=== PATIENT | female | born 1930 | race Caucasian/White ===

== ENCOUNTER 2017-10-13 23:31 | Inpatient (IN) | payer MEDICARE, OTHER ==
[~2017-10-13] VITALS: Ht 172.7 cm; Wt 49.0 kg
[2017-10-14] MEDS ORDERED: METO50TA6 PO (00:44)
[2017-10-14] MEDS ORDERED: RIVA10TA PO (00:44)
[2017-10-14] MEDS ORDERED: DICL100G18 TP (00:44)
[2017-10-14] MEDS ORDERED: FLEC100T PO (00:44)
[2017-10-14] MEDS ORDERED: AMLO5TAB7 PO (00:44)
[2017-10-14] MEDS ORDERED: LEVO75TA5 PO (00:44)
[2017-10-14] MEDS ORDERED: SENN-79 PO (00:44)
[2017-10-14] MEDS ORDERED: BUPR-192 PO (00:44)
[2017-10-14] MEDS ORDERED: CHOL100013 PO (00:44)
[2017-10-14] MEDS ORDERED: ESTA2TAB PO (00:44)
--- NOTE | 2017-10-14 04:15 | NUR ---
Admission Note with Justification for Admission to [facility] Patient admitted to [facility] for protective oversight for emergency stabilization of acute psychiatric crisis. Pt admitted from: Hospital ER Mode of arrival: Secure Transport Accompanied By: [facility] Staff Precipitating behaviors that initiated intake and admission: SI, patient stated she would slit her wrist if she couldn't live with her partner Description of failure of out patient attempts at stabilization in previous setting list behavior and medication trials: ER Behaviors and assessment findings upon admission: Very accommodating, pleasant, cooperative Plan: Admit for protective oversight for adjustment and stabilization of medications, behaviors and mood. Intense treatment regimen including groups, medication adjustments, therapy, consistent regimen for ADL's, self care, and sleep hygiene. Daily monitoring by Inpatient staff, Psychiatry, and Medical Physician.
[2017-10-14] MEDS ORDERED: METHYL SALICYLATE/MENTHOL TOPICAL OINTMENT 29GM TUBE. TP PRN (04:30)
[2017-10-14] MEDS ORDERED: MAG HYDROX/AL HYDROX/SIMETH 30 ML ORAL.SUSP PO PRN (04:30)
[2017-10-14 05:12] LABS: BACTERIA,URINE 0 /HPF (0-FEW); BILIRUBIN,URINE NEG (NEG); CLARITY,URINE CLEAR; COLOR,URINE YELLOW; GLUCOSE,URINE NEG (NEG); NITRITE,URINE NEG (NEG); RBC,URINE 0 /HPF (0-2); SQUAMOUS EPITHELIAL CELL,UR OCC /LPF; UROBILINOGEN,URINE 0.2 mg/dL (0.2 mg/dL); WBC,URINE OCC /HPF (0-4)
[2017-10-14] MEDS ORDERED: DICLOFENAC SODIUM 1% TOPICAL GEL 100GM TUBE. TP PRN (05:45)
[2017-10-14 05:52] VITALS: BP 117/72
[2017-10-14 06:34] LABS: BASO % 1 % (0-3); EOS # 0.1 x10^3/uL (0.0-0.7); EOS % 1 % (0-3); HEMATOCRIT 33.4 % (36.0-47.0); HEMOGLOBIN 11.1 g/dL (12.0-15.5); LYMPH % 28 % (24-48); MEAN CORPUSCULAR HEMOGLOBIN 28 pg (25-35); MEAN CORPUSCULAR HGB CONC 33 g/dL (31-37); MEAN CORPUSCULAR VOLUME 83 fL (79-100); MONO # 0.9 x10^3/uL (0.0-1.1); MONO % 13 % (0-9); NEUT # 4.3 x10^3uL (1.8-7.7); NEUT % 58 % (31-73); PLATELET COUNT 332 x10^3/uL (140-400); RED BLOOD COUNT 4.02 x10^6/uL (3.50-5.40); WHITE BLOOD COUNT 7.4 x10^3/uL (4.0-11.0)
[2017-10-14 06:51] LABS: ALBUMIN/GLOBULIN RATIO 0.9 (1.0-1.7); CALCIUM 8.2 mg/dL (8.5-10.1); CREATININE 0.7 mg/dL (0.6-1.0); GFR 78.8; MAGNESIUM 1.8 mg/dL (1.8-2.4); POTASSIUM 3.6 mmol/L (3.5-5.1); TOTAL BILIRUBIN 0.6 mg/dL (0.2-1.0); TOTAL PROTEIN 6.2 g/dL (6.4-8.2)
[2017-10-14] MEDS: LEVOTHYROXINE 75 MCG TABLET PO SCH (08:40)
[2017-10-14] MEDS: METOPROLOL TART IMMED RELEASE 50 MG TABLET PO SCH ×2 (08:41→20:30)
[2017-10-14] MEDS: FLECAINIDE 50 MG TABLET. PO SCH ×2 (08:42→20:31)
[2017-10-14] MEDS: CHOLECALCIFEROL (VITAMIN D3) 1,000 UNIT TABLET PO SCH (08:43)
[2017-10-14] MEDS: buPROPion XL 150 MG TAB.ER.24H PO SCH (08:43)
[2017-10-14] MEDS: ACETAMINOPHEN 325 MG TABLET PO PRN (08:51)
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
[2017-10-14 14:12] LABS: THYROID STIM HORMONE (TSH) 4.706 uIU/mL (0.358-3.740)
[2017-10-14 16:28] VITALS: BP 132/78
[2017-10-14] MEDS: amLODIPine BESYLATE 5 MG TABLET PO SCH (17:15)
--- NOTE | 2017-10-14 17:38 | NUR ---
SW returned call to pt sergey Rodriguez and left a message asking for a returned call. SW will attempt to contact pt in the morning when possible.
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
[2017-10-14] MEDS: SENNOSIDES 8.6 MG TABLET PO SCH (20:29)
[2017-10-14] MEDS: TEMAZEPAM 15 MG CAPSULE PO SCH (20:29)
[2017-10-14] MEDS: RIVAROXABAN 10 MG TABLET. PO SCH (20:29)
--- NOTE | 2017-10-14 20:30 | NUR ---
Behavior Intervention Response and Plan: BIRP Note: Behavior: Assumed Care of patient, patient located in Patient Room at shift change. Patient exhibited the following behavior Calm, Interactive, Compliant. Brief assessment on rounds of vital signs, medication needs, lab studies, and pain. Treatment plan problems . Intervention: Patient assessed and the following interventions initiated safety checks 15 Minute Checks Cognitive Assessment , Head to toe Assessment , Medications. Response: After interactions and interventions patient responded in the following manner, Interactive , Calm ,Compliant. Continue to assess behaviors and condition will continue to monitor throughout the shift as needed. Patient educated on ADL's, and hand hygiene. 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 Continue to assess patient for changes in above assessment. Monitor for medication needs, pain, and safety concerns. Hourly rounding performed to ensure safe environment.
--- NOTE | 2017-10-14 20:54 | PDOC ---
Exam Note: Tyson Note: Please also refer to the separate dictated note~for this date of service dictated separately.~Patient seen individually. Discussed the patient with Nursing staff reviewed the chart.~Reviewed interim history and current functioning. Reviewed vital signs,~Labs/ Radiology~and current medications noted below. Continue current treatment with the changes noted in the dictated addendum note Assessment: Vital Signs: Vital Signs Date Time Temp Pulse Resp B/P (MAP) Pulse Ox O2 Delivery O2 Flow Rate FiO2 10/14/17 20:31 60 132/78 10/14/17 16:28 97.8 17 97 Room Air Labs: Laboratory Tests Test 10/14/17 04:45 10/14/17 06:14 Urine Collection Type Unknown Urine Color Yellow Urine Clarity Clear Urine pH 8.0 Urine Specific [place] 1.020 Urine Protein Neg (NEG-TRACE) Urine Glucose (UA) Neg mg/dL (NEG) Urine Ketones (Stick) 15 mg/dL (NEG) Urine Blood Neg (NEG) Urine Nitrite Neg (NEG) Urine Bilirubin Neg (NEG) Urine Urobilinogen Dipstick 0.2 mg/dL (0.2 mg/dL) Urine Leukocyte Esterase Neg (NEG) Urine RBC 0 /HPF (0-2) Urine WBC Occ /HPF (0-4) Urine Squamous Epithelial Cells Occ /LPF Urine Bacteria 0 /HPF (0-FEW) White Blood Count 7.4 x10^3/uL (4.0-11.0) Red Blood Count 4.02 x10^6/uL (3.50-5.40) Hemoglobin 11.1 g/dL (12.0-15.5) L Hematocrit 33.4 % (36.0-47.0) L Mean Corpuscular Volume 83 fL (79-100) Mean Corpuscular Hemoglobin 28 pg (25-35) Mean Corpuscular Hemoglobin Concent 33 g/dL (31-37) Red Cell Distribution Width 17.0 % (11.5-14.5) H Platelet Count 332 x10^3/uL (140-400) Neutrophils (%) (Auto) 58 % (31-73) Lymphocytes (%) (Auto) 28 % (24-48) Monocytes (%) (Auto) 13 % (0-9) H Eosinophils (%) (Auto) 1 % (0-3) Basophils (%) (Auto) 1 % (0-3) Neutrophils # (Auto) 4.3 x10^3uL (1.8-7.7) Lymphocytes # (Auto) 2.0 x10^3/uL (1.0-4.8) Monocytes # (Auto) 0.9 x10^3/uL (0.0-1.1) Eosinophils # (Auto) 0.1 x10^3/uL (0.0-0.7) Basophils # (Auto) 0.0 x10^3/uL (0.0-0.2) Sodium Level 133 mmol/L (136-145) L Potassium Level 3.6 mmol/L (3.5-5.1) Chloride Level 99 mmol/L (98-107) Carbon Dioxide Level 27 mmol/L (21-32) Anion Gap 7 (6-14) Blood Urea Nitrogen 15 mg/dL (7-20) Creatinine 0.7 mg/dL (0.6-1.0) Estimated GFR (Cockcroft-Gault) 78.8 BUN/Creatinine Ratio 21 (6-20) H Glucose Level 95 mg/dL (70-99) Calcium Level 8.2 mg/dL (8.5-10.1) L Magnesium Level 1.8 mg/dL (1.8-2.4) Iron Level 34 ug/dL (50-170) L Total Iron Binding Capacity 319 ug/dL (250-450) Iron Saturation 11 % (15-34) L Total Bilirubin 0.6 mg/dL (0.2-1.0) Aspartate Amino Transferase (AST) 29 U/L (15-37) Alanine Aminotransferase (ALT) 43 U/L (14-59) Alkaline Phosphatase 117 U/L (46-116) H Total Protein 6.2 g/dL (6.4-8.2) L Albumin 3.0 g/dL (3.4-5.0) L Albumin/Globulin Ratio 0.9 (1.0-1.7) L Triglycerides Level 98 mg/dL (0-150) Cholesterol Level 187 mg/dL (0-200) LDL Cholesterol, Calculated 120 mg/dL (0-100) H VLDL Cholesterol, Calculated 19 mg/dL (0-40) Non-HDL Cholesterol Calculated 139 mg/dL (0-129) H HDL Cholesterol 48 mg/dL (40-60) Cholesterol/HDL Ratio 3.0 Vitamin B12 Level 458 pg/mL (247-911) 25-Hydroxy Vitamin D Total 31.1 ng/mL (30-100) Thyroid Stimulating Hormone (TSH) 4.706 uIU/mL (0.358-3.740) Treponema pallidum Antibody Nonreactive (Nonreactive) Current Medications: Meds: Current Medications Olanzapine (ZyPREXA ZYDIS) 2.5 mg PRN Q2HR PRN PO ANXIETY / AGITATION; Start at 04:00 Acetaminophen (Tylenol) 650 mg PRN Q6HRS PRN PO PAIN / TEMP Last administered on 10/14/17 08:51; Start 10/14/17 at 04:30 Multi-Ingredient Ointment (Analgesic Tyler) 1 ashlee PRN QID PRN TP MUSCLE PAIN; Start 10/14/17 at 04:30 Al Hydroxide/Mg Hydroxide (Mylanta Plus Xs) 15 ml PRN AFTMEALHC PRN PO DYSPEPSIA; Start 10/14/17 at 04:30 Magnesium Hydroxide (Milk Of Magnesia) 2,400 mg PRN QHS PRN PO CONSTIPATION; Start 10/14/17 at 04:30 Bupropion HCl (Wellbutrin Xl) 150 mg DAILY PO Last administered on 10/14/17at 08: 43; Start 10/14/17 at 09:00 Diclofenac Sodium (Voltaren) 1 ashlee PRN QID PRN TP PAIN; Start 10/14/17 at 05:45 Levothyroxine Sodium (Synthroid) 75 mcg DAILY07 PO Last administered on at 08:40; Start 10/14/17 at 07:00 Rivaroxaban (Xarelto) 10 mg QHS PO Last administered on 10/14/17 20:29; Start 10/14/17 at 21:00 Amlodipine Besylate (Norvasc) 5 mg QPM PO Last administered on 10/14/17 17:15; Start 10/14/17 at 18:00 Vitamin D (Vitamin D3) 500 unit DAILY PO Last administered on 10/14/17 08:43; Start 10/14/17 at 09:00 Temazepam (Restoril) 15 mg QHS PO Last administered on 10/14/17at 20:29; Start at 21:00 Flecainide Acetate (Tambocor) 100 mg BID PO Last administered on 10/14/17at 20:31 ; Start 10/14/17 at 09:00 Metoprolol Tartrate (Lopressor) 50 mg BID PO Last administered on 10/14/17at 20: 30; Start 10/14/17 at 09:00 Sennosides (Senna) 8.6 mg QHS PO Last administered on 10/14/17at 20:29; Start 10/14/17 at 21:00 Active Scripts Active Reported Amlodipine Besylate 5 Mg Tablet 5 Mg PO QPM Bupropion Xl (Bupropion Hcl) 150 Mg Tab.er.24h 150 Mg PO DAILY Vitamin D (Cholecalciferol (Vitamin D3)) 1,000 Unit Capsule 500 Unit PO DAILY Voltaren (Diclofenac Sodium) 100 Gm Gel..gram. 1 Ashlee TP PRN QID PRN Estazolam 2 Mg Tablet 2 Mg PO QHS Flecainide Acetate 100 Mg Tablet 100 Mg PO BID Levothyroxine Sodium 75 Mcg Tablet 75 Mcg PO DAILYAC Metoprolol Tartrate 50 Mg Tablet 50 Mg PO BID Xarelto (Rivaroxaban) 10 Mg Tablet 10 Mg PO QHS Senna (Sennosides) 8.6 Mg Tablet 8.6 Mg PO QHS I have reviewed the current psychotropics carefully including drug interactions. Risk benefit ratio favors no change other than as noted in my dictated progress note. Diagnosis: Problems: (1) Anxiety disorder (2) Impulse control disorder (3) Major depressive disorder, recurrent episode (4) Mild cognitive impairment SYBIL JOE MD Oct 14, 2017 20:54
[2017-10-14 23:12] LABS: THYROXINE 10.1 ug/dL (4.5-12.0)
[2017-10-15 02:09] LABS: HEMOGLOBIN A1C 5.4 % (4.8-5.6)
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
[2017-10-15] MEDS: LEVOTHYROXINE 75 MCG TABLET PO SCH (05:46)
[2017-10-15 06:51] VITALS: BP 103/59
[2017-10-15] MEDS: CHOLECALCIFEROL (VITAMIN D3) 1,000 UNIT TABLET PO SCH (08:06)
[2017-10-15] MEDS: buPROPion XL 150 MG TAB.ER.24H PO SCH (08:06)
[2017-10-15] MEDS: METOPROLOL TART IMMED RELEASE 50 MG TABLET PO SCH ×2 (08:07→19:58)
[2017-10-15] MEDS: FLECAINIDE 50 MG TABLET. PO SCH ×2 (08:08→20:00)
--- NOTE | 2017-10-15 12:17 | NUR ---
Behavior Intervention Response and Plan: BIRP Note: Behavior: Assumed Care of patient, patient located in Patient Room at shift change. Patient exhibited the following behavior Compliant, Attention Seeking, Restless. Brief assessment on rounds of vital signs, medication needs, lab studies, and pain. Treatment plan problems . Intervention: Patient assessed and the following interventions initiated safety checks 15 Minute Checks Cognitive Assessment , Head to toe Assessment , Medications. Response: After interactions and interventions patient responded in the following manner, Wandering , Restless ,Anxious. Continue to assess behaviors and condition will continue to monitor throughout the shift as needed. Patient educated on ADL's, and hand hygiene. 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 Continue to assess patient for changes in above assessment. Monitor for medication needs, pain, and safety concerns. Hourly rounding performed to ensure safe environment.
[2017-10-15 16:00] VITALS: BP 113/75
[2017-10-15] MEDS: amLODIPine BESYLATE 5 MG TABLET PO SCH (18:08)
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
[2017-10-15] MEDS: SENNOSIDES 8.6 MG TABLET PO SCH (19:58)
[2017-10-15] MEDS: RIVAROXABAN 10 MG TABLET. PO SCH (19:58)
[2017-10-15] MEDS: TEMAZEPAM 15 MG CAPSULE PO SCH (20:02)
[2017-10-15] MEDS: LIDOCAINE (700MG/PATCH) PATCH. TD SCH (20:23)
--- NOTE | 2017-10-15 20:45 | PDOC ---
Exam Note: Tyson Note: Please also refer to the separate dictated note~for this date of service dictated separately.~Patient seen individually. Discussed the patient with Nursing staff reviewed the chart.~Reviewed interim history and current functioning. Reviewed vital signs,~Labs/ Radiology~and current medications noted below. Continue current treatment with the changes noted in the dictated addendum note Assessment: Vital Signs: Vital Signs Date Time Temp Pulse Resp B/P (MAP) Pulse Ox O2 Delivery O2 Flow Rate FiO2 10/15/17 20:00 68 113/75 10/15/17 16:00 96.9 20 95 10/14/17 16:28 Room Air I&O Intake and Output 10/15/17 07:00 Intake Total 480 ml Balance 480 ml Intake Oral 480 ml # Voids 1 Current Medications: Meds: Current Medications Olanzapine (ZyPREXA ZYDIS) 2.5 mg PRN Q2HR PRN PO ANXIETY / AGITATION; Start at 04:00 Acetaminophen (Tylenol) 650 mg PRN Q6HRS PRN PO PAIN / TEMP Last administered on 10/14/17at 08:51; Start 10/14/17 at 04:30 Multi-Ingredient Ointment (Analgesic Florien) 1 ashlee PRN QID PRN TP MUSCLE PAIN; Start 10/14/17 at 04:30 Al Hydroxide/Mg Hydroxide (Mylanta Plus Xs) 15 ml PRN AFTMEALHC PRN PO DYSPEPSIA; Start 10/14/17 at 04:30 Magnesium Hydroxide (Milk Of Magnesia) 2,400 mg PRN QHS PRN PO CONSTIPATION; Start 10/14/17 at 04:30 Bupropion HCl (Wellbutrin Xl) 150 mg DAILY PO Last administered on 10/15/17at 08: 06; Start 10/14/17 at 09:00 Diclofenac Sodium (Voltaren) 1 ashlee PRN QID PRN TP PAIN; Start 10/14/17 at 05:45 Levothyroxine Sodium (Synthroid) 75 mcg DAILY07 PO Last administered on at 05:46; Start 10/14/17 at 07:00 Rivaroxaban (Xarelto) 10 mg QHS PO Last administered on 10/15/17at 19:58; Start 10/14/17 at 21:00 Amlodipine Besylate (Norvasc) 5 mg QPM PO Last administered on 10/15/17 18:08; Start 10/14/17 at 18:00 Vitamin D (Vitamin D3) 500 unit DAILY PO Last administered on 10/15/17at 08:06; Start 10/14/17 at 09:00 Temazepam (Restoril) 15 mg QHS PO Last administered on 10/15/17 20:02; Start at 21:00 Flecainide Acetate (Tambocor) 100 mg BID PO Last administered on 10/15/17 20:00 ; Start 10/14/17 at 09:00 Metoprolol Tartrate (Lopressor) 50 mg BID PO Last administered on 10/15/17 19: 58; Start 10/14/17 at 09:00 Sennosides (Senna) 8.6 mg QHS PO Last administered on 10/15/17 19:58; Start 10/14/17 at 21:00 Lidocaine (Lidoderm) 1 patch DAILY TD Last administered on 10/15/17 20:23; Start 10/15/17 at 20:00 Miscellaneous (Lidoderm Patch Removal) 1 ea QHS MC ; Start 10/16/17 at 21:00 Active Scripts Active Reported Amlodipine Besylate 5 Mg Tablet 5 Mg PO QPM Bupropion Xl (Bupropion Hcl) 150 Mg Tab.er.24h 150 Mg PO DAILY Vitamin D (Cholecalciferol (Vitamin D3)) 1,000 Unit Capsule 500 Unit PO DAILY Voltaren (Diclofenac Sodium) 100 Gm Gel..gram. 1 Ashlee TP PRN QID PRN Estazolam 2 Mg Tablet 2 Mg PO QHS Flecainide Acetate 100 Mg Tablet 100 Mg PO BID Levothyroxine Sodium 75 Mcg Tablet 75 Mcg PO DAILYAC Metoprolol Tartrate 50 Mg Tablet 50 Mg PO BID Xarelto (Rivaroxaban) 10 Mg Tablet 10 Mg PO QHS Senna (Sennosides) 8.6 Mg Tablet 8.6 Mg PO QHS I have reviewed the current psychotropics carefully including drug interactions. Risk benefit ratio favors no change other than as noted in my dictated progress note. Diagnosis: Problems: (1) Anxiety disorder (2) Impulse control disorder (3) Major depressive disorder, recurrent episode (4) Mild cognitive impairment SYBIL JOE MD Oct 15, 2017 20:44
--- NOTE | 2017-10-15 20:53 | NUR ---
Nursing note: Assumed care of patient in her room. she was calm, compliant w/meds and assessment. C/o pain in lower back 10/18 and asked for a lidocaine patch. I got the order and applied the patch as requested. She was withdrawn and still talked about how upset she is with her son. Pt is A&OX3.
[2017-10-16] MEDS: ACETAMINOPHEN 325 MG TABLET PO PRN (03:24)
[2017-10-16] MEDS: LEVOTHYROXINE 75 MCG TABLET PO SCH (06:01)
[2017-10-16 06:05] VITALS: BP 150/82
[2017-10-16] MEDS: buPROPion XL 150 MG TAB.ER.24H PO SCH (07:35)
[2017-10-16] MEDS: CHOLECALCIFEROL (VITAMIN D3) 1,000 UNIT TABLET PO SCH (07:35)
[2017-10-16] MEDS: LIDOCAINE (700MG/PATCH) PATCH. TD SCH (07:36)
[2017-10-16] MEDS: METOPROLOL TART IMMED RELEASE 50 MG TABLET PO SCH ×2 (07:36→20:42)
[2017-10-16] MEDS: FLECAINIDE 50 MG TABLET. PO SCH ×2 (07:39→20:43)
--- NOTE | 2017-10-16 09:08 | NUR ---
Behavior Intervention Response and Plan: BIRP Note: Behavior: Assumed Care of patient, patient located in Dining Room at shift change. Patient exhibited the following behavior Wandering, Disorganized, Compliant. Brief assessment on rounds of vital signs, medication needs, lab studies, and pain. Treatment plan problems . Intervention: Patient assessed and the following interventions initiated safety checks 15 Minute Checks Cognitive Assessment , Head to toe Assessment , Medications. Response: After interactions and interventions patient responded in the following manner, Disorganized , Wandering ,Exit Seeking. Continue to assess behaviors and condition will continue to monitor throughout the shift as needed. Patient educated on ADL's, and hand hygiene. Plan: Continue to monitor Master Treatment Plan for patient's progress toward short term goals of Decreased Agitation, Decreased Aggression, intermediate accountant goals to return to previous living setting vs placement. Continue to assess patient for changes in above assessment. Monitor for medication needs, pain, and safety concerns. Hourly rounding performed to ensure safe environment.
[2017-10-16] MEDS: MAGNESIUM HYDROXIDE 2,400 MG/30 ML ORAL.SUSP. PO PRN (09:40)
[2017-10-16] MEDS ORDERED: BISACODYL 10 MG SUPP.RECT PR PRN (12:45)
[2017-10-16] MEDS: ONDANSETRON ODT 4 MG TAB.RAPDIS PO PRN (13:51)
--- NOTE | 2017-10-16 15:00 | RAD ---
EXAM: Frontal view of the chest, AP views of the abdomen in upright and supine positions. CLINICAL INDICATION: ABDOMINAL PAIN WITH VOMITING TODAY COMPARISON: None FINDINGS and IMPRESSION: Cardiac generator pack obscures a portion left chest with leads in stable position. Multiple old right rib fractures are seen. The heart is not enlarged. Mediastinal and hilar contours are normal. Atherosclerotic calcifications of the tortuous aorta are seen. No focal parenchymal airspace opacity. Blunting of the left costophrenic angle likely small left pleural effusion. Mild left pleural thickening. No abnormal small or large bowel dilatation. No evidence for bowel obstruction. Moderate to large volume colonic stool content. No abnormal soft tissue mass effect. No suspicious calcifications are seen. No free intraperitoneal gas. 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 Electronically signed by: Herson Jackson MD (10/16/2017 2:57 PM) [facility]
[2017-10-16 16:16] VITALS: BP 142/79
[2017-10-16] MEDS ORDERED: MAGNESIUM CITRATE 296 ML SOLUTION. PO ONE (17:30)
[2017-10-16] MEDS: amLODIPine BESYLATE 5 MG TABLET PO SCH (17:43)
--- NOTE | 2017-10-16 17:51 | NUR ---
pt c/o nausea at breakfast. stated she has not had a BM in last few days. abd round. gave MOM. pt came out for supper. vomited approx. 100cc undigested food. Dr fisher notified. AAS done. pt has mod to large amount of stool in colon. Order for mag citrate and supp. Pt stated she had small BM and would self administer the supp. is drinking the mag citrate now. has been anxious at times. mostly withdrawn to room. compliant with meds and cares.
[2017-10-16] MEDS: SENNOSIDES 8.6 MG TABLET PO SCH (20:42)
[2017-10-16] MEDS: TEMAZEPAM 15 MG CAPSULE PO SCH (20:42)
[2017-10-16] MEDS: RIVAROXABAN 10 MG TABLET. PO SCH (20:42)
[2017-10-16] MEDS: PATCH REMOVAL. MC SCH (20:43)
--- NOTE | 2017-10-16 23:15 | NUR ---
Pt laying in bed at shift change. Pt very interactive, stating that she is feeling better this evening. Pt had 2 large BMs after consuming Mag Citrate. Pt social, talking about her history and travels. Pt also stated that she had been fortunate enough to save up alot of money that her family now wants. Pt states that she does not belong here, stating that [facility] ER told her she would be going to a "spa for 3 days." Denies SI. Compliant with whole medications.
--- NOTE | 2017-10-16 23:20 | PDOC ---
Exam Note: Tyson Note: Please also refer to the separate dictated note~for this date of service dictated separately.~Patient seen individually. Discussed the patient with Nursing staff reviewed the chart.~Reviewed interim history and current functioning. Reviewed vital signs,~Labs/ Radiology~and current medications noted below. Continue current treatment with the changes noted in the dictated addendum note Assessment: Vital Signs: Vital Signs Date Time Temp Pulse Resp B/P (MAP) Pulse Ox O2 Delivery O2 Flow Rate FiO2 10/16/17 20:43 66 142/79 10/16/17 16:16 97.7 20 95 10/16/17 06:05 Room Air I&O Intake and Output 10/16/17 07:00 Intake Total 1140 ml Balance 1140 ml Intake Oral 1140 ml Current Medications: Meds: Current Medications Olanzapine (ZyPREXA ZYDIS) 2.5 mg PRN Q2HR PRN PO ANXIETY / AGITATION; Start at 04:00 Acetaminophen (Tylenol) 650 mg PRN Q6HRS PRN PO PAIN / TEMP Last administered on 10/16/17at 03:24; Start 10/14/17 at 04:30 Multi-Ingredient Ointment (Analgesic [place]) 1 ashlee PRN QID PRN TP MUSCLE PAIN; Start 10/14/17 at 04:30 Al Hydroxide/Mg Hydroxide (Mylanta Plus Xs) 15 ml PRN AFTMEALHC PRN PO DYSPEPSIA; Start 10/14/17 at 04:30 Magnesium Hydroxide (Milk Of Magnesia) 2,400 mg PRN QHS PRN PO CONSTIPATION Last administered on 10/16/17at 09:40; Start 10/14/17 at 04:30 Bupropion HCl (Wellbutrin Xl) 150 mg DAILY PO Last administered on 10/16/17at 07: 35; Start 10/14/17 at 09:00 Diclofenac Sodium (Voltaren) 1 ashlee PRN QID PRN TP PAIN; Start 10/14/17 at 05:45 Levothyroxine Sodium (Synthroid) 75 mcg DAILY07 PO Last administered on at 06:01; Start 10/14/17 at 07:00 Rivaroxaban (Xarelto) 10 mg QHS PO Last administered on 10/16/17at 20:42; Start 10/14/17 at 21:00 Amlodipine Besylate (Norvasc) 5 mg QPM PO Last administered on 10/16/17 17:43; Start 10/14/17 at 18:00 Vitamin D (Vitamin D3) 500 unit DAILY PO Last administered on 10/16/17 07:35; Start 10/14/17 at 09:00 Temazepam (Restoril) 15 mg QHS PO Last administered on 10/16/17 20:42; Start at 21:00 Flecainide Acetate (Tambocor) 100 mg BID PO Last administered on 10/16/17 20:43 ; Start 10/14/17 at 09:00 Metoprolol Tartrate (Lopressor) 50 mg BID PO Last administered on 10/16/17 20: 42; Start 10/14/17 at 09:00 Sennosides (Senna) 8.6 mg QHS PO Last administered on 10/16/17 20:42; Start 10/14/17 at 21:00 Lidocaine (Lidoderm) 1 patch DAILY TD Last administered on 10/15/17 20:23; Start 10/15/17 at 20:00 Miscellaneous (Lidoderm Patch Removal) 1 ea QHS MC ; Start 10/16/17 at 21:00 Ondansetron HCl (Zofran Odt) 4 mg PRN Q8HRS PRN PO NAUSEA/VOMITING Last administered on 10/16/17 13:51; Start 10/16/17 at 12:45 Bisacodyl (Dulcolax Supp) 10 mg PRN DAILY PRN [place] CONSTIPATION; Start 10/16/17 at 12:45 Magnesium Citrate (Citroma) 296 ml 1X ONCE PO Last administered on 10/16/17 17 :43; Start 10/16/17 at 17:30; Stop 10/16/17 at 17:31; Status DC Active Scripts Active Reported Amlodipine Besylate 5 Mg Tablet 5 Mg PO QPM Bupropion Xl (Bupropion Hcl) 150 Mg Tab.er.24h 150 Mg PO DAILY Vitamin D (Cholecalciferol (Vitamin D3)) 1,000 Unit Capsule 500 Unit PO DAILY Voltaren (Diclofenac Sodium) 100 Gm Gel..gram. 1 Ashlee TP PRN QID PRN Estazolam 2 Mg Tablet 2 Mg PO QHS Flecainide Acetate 100 Mg Tablet 100 Mg PO BID Levothyroxine Sodium 75 Mcg Tablet 75 Mcg PO DAILYAC Metoprolol Tartrate 50 Mg Tablet 50 Mg PO BID Xarelto (Rivaroxaban) 10 Mg Tablet 10 Mg PO QHS Senna (Sennosides) 8.6 Mg Tablet 8.6 Mg PO QHS I have reviewed the current psychotropics carefully including drug interactions. Risk benefit ratio favors no change other than as noted in my dictated progress note. Diagnosis: Problems: (1) Anxiety disorder (2) Impulse control disorder (3) Major depressive disorder, recurrent episode (4) Mild cognitive impairment SYBIL JOE MD Oct 16, 2017 23:20
[2017-10-17 06:12] VITALS: BP 116/78
[2017-10-17] MEDS: ONDANSETRON ODT 4 MG TAB.RAPDIS PO PRN ×2 (06:23→18:05)
[2017-10-17] MEDS: METOPROLOL TART IMMED RELEASE 50 MG TABLET PO SCH ×2 (07:57→20:36)
[2017-10-17] MEDS: LEVOTHYROXINE 75 MCG TABLET PO SCH (07:57)
[2017-10-17] MEDS: CHOLECALCIFEROL (VITAMIN D3) 1,000 UNIT TABLET PO SCH (07:57)
[2017-10-17] MEDS: FLECAINIDE 50 MG TABLET. PO SCH ×2 (07:57→20:37)
[2017-10-17] MEDS: LIDOCAINE (700MG/PATCH) PATCH. TD SCH (07:58)
[2017-10-17] MEDS: SERTRALINE 50 MG TABLET. PO SCH (07:59)
--- NOTE | 2017-10-17 09:41 | NUR ---
Behavior Intervention Response and Plan: BIRP Note: Behavior: Assumed Care of patient, patient located in Dining Room at shift change. Patient exhibited the following behavior Wandering, Disorganized, Compliant. Brief assessment on rounds of vital signs, medication needs, lab studies, and pain. Treatment plan problems . Intervention: Patient assessed and the following interventions initiated safety checks 15 Minute Checks Cognitive Assessment , Head to toe Assessment , Medications. Response: After interactions and interventions patient responded in the following manner, Disorganized , Wandering ,Exit Seeking. Continue to assess behaviors and condition will continue to monitor throughout the shift as needed. Patient educated on ADL's, and hand hygiene. Plan: Continue to monitor Master Treatment Plan for patient's progress toward short term goals of Decreased Agitation, Decreased Aggression, joint terminal attack controller goals to return to previous living setting vs placement. Continue to assess patient for changes in above assessment. Monitor for medication needs, pain, and safety concerns. Hourly rounding performed to ensure safe environment.
[2017-10-17] MEDS ORDERED: traMADol 50 MG TABLET PO PRN (12:30)
--- NOTE | 2017-10-17 15:24 | PN ---
DATE: 10/15/2017 This is a late entry for 10/15/2017 and covers elements not covered in my initial note. SUBJECTIVE: I met with the patient in the evening. Overall, the patient remains somewhat withdrawn, very angry at her son's for taking guardianship and legal proceedings in this respect. 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 No CV, , pulmonary, eye system symptoms on review. MENTAL STATUS EXAM: Reasonably oriented. Speech coherent with some pressure, abstraction fair, computation impaired, language function intact, attention span short. Mood and affect, somewhat grandiose at times. LABORATORY DATA: Reviewed. IMPRESSION: Major depressive disorder versus bipolar 1 disorder, mixed; anxiety disorder, unspecified; cognitive disorder, unspecified. PLAN: Continue psychotropics from initial note. Consider changing Wellbutrin to SSRI given her obsessive anxiety symptoms together with mood symptoms. MAN Renetta JOE MD DR: KELTON/lizz JOB#: [id number] / [id number]
[2017-10-17 15:59] VITALS: BP 149/73
--- NOTE | 2017-10-17 17:22 | NUR ---
pt has been nauseated off and on but has taken in intermittent snacks and drinks. has not left room. with much encouragement has come out to supper but c/o dizziness. encouraged pt to drink more fluids held abel lewis.
[2017-10-17] MEDS: amLODIPine BESYLATE 5 MG TABLET PO SCH (17:38)
[2017-10-17] MEDS: TEMAZEPAM 15 MG CAPSULE PO SCH (20:35)
[2017-10-17] MEDS: SENNOSIDES 8.6 MG TABLET PO SCH ×2 (20:35→21:00)
[2017-10-17] MEDS: RIVAROXABAN 10 MG TABLET. PO SCH (20:36)
[2017-10-17] MEDS: PATCH REMOVAL. MC SCH (20:37)
--- NOTE | 2017-10-17 20:55 | PDOC ---
Exam Note: Tyson Note: Please also refer to the separate dictated note~for this date of service dictated separately.~Patient seen individually. Discussed the patient with Nursing staff reviewed the chart.~Reviewed interim history and current functioning. Reviewed vital signs,~Labs/ Radiology~and current medications noted below. Continue current treatment with the changes noted in the dictated addendum note Assessment: Vital Signs: Vital Signs Date Time Temp Pulse Resp B/P (MAP) Pulse Ox O2 Delivery O2 Flow Rate FiO2 10/17/17 20:37 62 149/73 10/17/17 15:59 97.4 16 97 10/17/17 06:12 Room Air I&O Intake and Output 10/17/17 07:00 Intake Total 320 ml Balance 320 ml Intake Oral 320 ml # Bowel Movements 3 Current Medications: Meds: Current Medications Olanzapine (ZyPREXA ZYDIS) 2.5 mg PRN Q2HR PRN PO ANXIETY / AGITATION; Start at 04:00 Acetaminophen (Tylenol) 650 mg PRN Q6HRS PRN PO PAIN / TEMP Last administered on 10/16/17at 03:24; Start 10/14/17 at 04:30 Multi-Ingredient Ointment (Analgesic [place]) 1 ashlee PRN QID PRN TP MUSCLE PAIN; Start 10/14/17 at 04:30 Al Hydroxide/Mg Hydroxide (Mylanta Plus Xs) 15 ml PRN AFTMEALHC PRN PO DYSPEPSIA; Start 10/14/17 at 04:30 Magnesium Hydroxide (Milk Of Magnesia) 2,400 mg PRN QHS PRN PO CONSTIPATION Last administered on 10/16/17at 09:40; Start 10/14/17 at 04:30 Bupropion HCl (Wellbutrin Xl) 150 mg DAILY PO Last administered on 10/16/17at 07: 35; Start 10/14/17 at 09:00; Stop 10/16/17 at 23:30; Status DC Diclofenac Sodium (Voltaren) 1 ashlee PRN QID PRN TP PAIN; Start 10/14/17 at 05:45 Levothyroxine Sodium (Synthroid) 75 mcg DAILY07 PO Last administered on at 07:57; Start 10/14/17 at 07:00 Rivaroxaban (Xarelto) 10 mg QHS PO Last administered on 10/17/17at 20:36; Start 10/14/17 at 21:00 Amlodipine Besylate (Norvasc) 5 mg QPM PO Last administered on 10/16/17 17:43; Start 10/14/17 at 18:00 Vitamin D (Vitamin D3) 500 unit DAILY PO Last administered on 10/17/17 07:57; Start 10/14/17 at 09:00 Temazepam (Restoril) 15 mg QHS PO Last administered on 10/17/17 20:35; Start at 21:00 Flecainide Acetate (Tambocor) 100 mg BID PO Last administered on 10/17/17 20:37 ; Start 10/14/17 at 09:00 Metoprolol Tartrate (Lopressor) 50 mg BID PO Last administered on 10/17/17 20: 36; Start 10/14/17 at 09:00 Sennosides (Senna) 8.6 mg QHS PO Last administered on 10/17/17 20:35; Start 10/14/17 at 21:00 Lidocaine (Lidoderm) 1 patch DAILY TD Last administered on 10/17/17 07:58; Start 10/15/17 at 20:00 Miscellaneous (Lidoderm Patch Removal) 1 ea QHS MC ; Start 10/16/17 at 21:00 Ondansetron HCl (Zofran Odt) 4 mg PRN Q8HRS PRN PO NAUSEA/VOMITING Last administered on 10/17/17 18:05; Start 10/16/17 at 12:45 Bisacodyl (Dulcolax Supp) 10 mg PRN DAILY PRN [place] CONSTIPATION; Start 10/16/17 at 12:45 Magnesium Citrate (Citroma) 296 ml 1X ONCE PO Last administered on 10/16/17 17 :43; Start 10/16/17 at 17:30; Stop 10/16/17 at 17:31; Status DC Sertraline HCl (Zoloft) 50 mg DAILY PO Last administered on 10/17/17 07:59; Start 10/17/17 at 09:00 Tramadol HCl (Ultram) 50 mg PRN Q6HRS PRN PO PAIN; Start 10/17/17 at 12:30 Active Scripts Active Reported Amlodipine Besylate 5 Mg Tablet 5 Mg PO QPM Bupropion Xl (Bupropion Hcl) 150 Mg Tab.er.24h 150 Mg PO DAILY Vitamin D (Cholecalciferol (Vitamin D3)) 1,000 Unit Capsule 500 Unit PO DAILY Voltaren (Diclofenac Sodium) 100 Gm Gel..gram. 1 Ashlee TP PRN QID PRN Estazolam 2 Mg Tablet 2 Mg PO QHS Flecainide Acetate 100 Mg Tablet 100 Mg PO BID Levothyroxine Sodium 75 Mcg Tablet 75 Mcg PO DAILYAC Metoprolol Tartrate 50 Mg Tablet 50 Mg PO BID Xarelto (Rivaroxaban) 10 Mg Tablet 10 Mg PO QHS Senna (Sennosides) 8.6 Mg Tablet 8.6 Mg PO QHS I have reviewed the current psychotropics carefully including drug interactions. Risk benefit ratio favors no change other than as noted in my dictated progress note. Diagnosis: Problems: (1) Anxiety disorder (2) Impulse control disorder (3) Major depressive disorder, recurrent episode (4) Mild cognitive impairment SYBIL JOE MD Oct 17, 2017 20:54
--- NOTE | 2017-10-17 22:59 | NUR ---
Pt resting in bed at shift change. Pt complains that she has had an upset stomach all day. Pt compliant with whole medications, states that she does not belong here. Denies SI.
[2017-10-18] MEDS: LEVOTHYROXINE 75 MCG TABLET PO SCH (06:12)
[2017-10-18 06:25] VITALS: BP 127/72
[2017-10-18] MEDS: METOPROLOL TART IMMED RELEASE 50 MG TABLET PO SCH ×2 (09:00→20:01)
[2017-10-18] MEDS: LIDOCAINE (700MG/PATCH) PATCH. TD SCH (09:00)
[2017-10-18] MEDS: SERTRALINE 50 MG TABLET. PO SCH (09:00)
[2017-10-18] MEDS: CHOLECALCIFEROL (VITAMIN D3) 1,000 UNIT TABLET PO SCH (09:01)
[2017-10-18] MEDS: FLECAINIDE 50 MG TABLET. PO SCH ×2 (09:03→20:03)
--- NOTE | 2017-10-18 09:45 | NUR ---
ACTIVITY THERAPY ASSESSMENT Completed based on observation and interview. Pt. was outside and agreeable to speak with PARTS PROCESSOR. She was able to recall most facts and details; however, did not appear to know why she was here. She explained she was [place] and talked about volunteering with [employer]. She also explained that she loves to read but is needing new glasses. She explained she likes foreign movies and books. She explained a current issue with her two sons, how they were wanting her things but she explained she's "not yet." Pt. prefers to be alone and referred to herself as a loner and being like a "fish out of water" around others. Initial goal aimed to increase stimulation: Pt. will participate in at least one individual or group activity per day.
[2017-10-18 15:53] VITALS: BP 125/84
--- NOTE | 2017-10-18 16:07 | NUR ---
Pt has been calm, cooperative, and compliant with all medications and assessments today. Pt has been very pleasant to be around this shift. She has been sociable with her roommate and other staff. She has participated in group activities this morning and afternoon. Pt refused to eat lunch but stated she only eats twice a day normally so she just preferred to not eat lunch.
[2017-10-18] MEDS: amLODIPine BESYLATE 5 MG TABLET PO SCH (16:20)
[2017-10-18] MEDS: PATCH REMOVAL. MC SCH (20:00)
[2017-10-18] MEDS: TEMAZEPAM 15 MG CAPSULE PO SCH (20:01)
[2017-10-18] MEDS: SENNOSIDES 8.6 MG TABLET PO SCH (20:01)
[2017-10-18] MEDS: RIVAROXABAN 10 MG TABLET. PO SCH (20:01)
--- NOTE | 2017-10-18 20:53 | PDOC ---
Exam Note: Tyson Note: Please also refer to the separate dictated note~for this date of service dictated separately.~Patient seen individually. Discussed the patient with Nursing staff reviewed the chart.~Reviewed interim history and current functioning. Reviewed vital signs,~Labs/ Radiology~and current medications noted below. Continue current treatment with the changes noted in the dictated addendum note Assessment: Vital Signs: Vital Signs Date Time Temp Pulse Resp B/P (MAP) Pulse Ox O2 Delivery O2 Flow Rate FiO2 10/18/17 20:03 68 125/84 10/18/17 15:53 97.2 16 94 Room Air I&O Intake and Output 10/18/17 07:00 Intake Total 480 ml Balance 480 ml Intake Oral 480 ml # Bowel Movements 1 Current Medications: Meds: Current Medications Olanzapine (ZyPREXA ZYDIS) 2.5 mg PRN Q2HR PRN PO ANXIETY / AGITATION; Start at 04:00 Acetaminophen (Tylenol) 650 mg PRN Q6HRS PRN PO PAIN / TEMP Last administered on 10/16/17at 03:24; Start 10/14/17 at 04:30 Multi-Ingredient Ointment (Analgesic [place]) 1 ashlee PRN QID PRN TP MUSCLE PAIN; Start 10/14/17 at 04:30 Al Hydroxide/Mg Hydroxide (Mylanta Plus Xs) 15 ml PRN AFTMEALHC PRN PO DYSPEPSIA; Start 10/14/17 at 04:30 Magnesium Hydroxide (Milk Of Magnesia) 2,400 mg PRN QHS PRN PO CONSTIPATION Last administered on 10/16/17at 09:40; Start 10/14/17 at 04:30 Bupropion HCl (Wellbutrin Xl) 150 mg DAILY PO Last administered on 10/16/17at 07: 35; Start 10/14/17 at 09:00; Stop 10/16/17 at 23:30; Status DC Diclofenac Sodium (Voltaren) 1 ashlee PRN QID PRN TP PAIN; Start 10/14/17 at 05:45 Levothyroxine Sodium (Synthroid) 75 mcg DAILY07 PO Last administered on at 06:12; Start 10/14/17 at 07:00 Rivaroxaban (Xarelto) 10 mg QHS PO Last administered on 10/18/17at 20:01; Start 10/14/17 at 21:00 Amlodipine Besylate (Norvasc) 5 mg QPM PO Last administered on 10/18/17 16:20 ; Start 10/14/17 at 18:00 Vitamin D (Vitamin D3) 500 unit DAILY PO Last administered on 10/18/17 09:01; Start 10/14/17 at 09:00 Temazepam (Restoril) 15 mg QHS PO Last administered on 10/18/17 20:01; Start 10/14/17 at 21:00 Flecainide Acetate (Tambocor) 100 mg BID PO Last administered on 10/18/17 20: 03; Start 10/14/17 at 09:00 Metoprolol Tartrate (Lopressor) 50 mg BID PO Last administered on 10/18/17 20: 01; Start 10/14/17 at 09:00 Sennosides (Senna) 8.6 mg QHS PO Last administered on 10/18/17 20:01; Start at 21:00 Lidocaine (Lidoderm) 1 patch DAILY TD Last administered on 10/18/17 09:00; Start 10/15/17 at 20:00 Miscellaneous (Lidoderm Patch Removal) 1 ea QHS MC Last administered on 20:00; Start 10/16/17 at 21:00 Ondansetron HCl (Zofran Odt) 4 mg PRN Q8HRS PRN PO NAUSEA/VOMITING Last administered on 10/17/17at 18:05; Start 10/16/17 at 12:45 Bisacodyl (Dulcolax Supp) 10 mg PRN DAILY PRN [place] CONSTIPATION; Start 10/16/17 at 12:45 Magnesium Citrate (Citroma) 296 ml 1X ONCE PO Last administered on 10/16/17 17 :43; Start 10/16/17 at 17:30; Stop 10/16/17 at 17:31; Status DC Sertraline HCl (Zoloft) 50 mg DAILY PO Last administered on 10/18/17 09:00; Start 10/17/17 at 09:00 Tramadol HCl (Ultram) 50 mg PRN Q6HRS PRN PO PAIN; Start 10/17/17 at 12:30 Active Scripts Active Reported Amlodipine Besylate 5 Mg Tablet 5 Mg PO QPM Bupropion Xl (Bupropion Hcl) 150 Mg Tab.er.24h 150 Mg PO DAILY Vitamin D (Cholecalciferol (Vitamin D3)) 1,000 Unit Capsule 500 Unit PO DAILY Voltaren (Diclofenac Sodium) 100 Gm Gel..gram. 1 Ashlee TP PRN QID PRN Estazolam 2 Mg Tablet 2 Mg PO QHS Flecainide Acetate 100 Mg Tablet 100 Mg PO BID Levothyroxine Sodium 75 Mcg Tablet 75 Mcg PO DAILYAC Metoprolol Tartrate 50 Mg Tablet 50 Mg PO BID Xarelto (Rivaroxaban) 10 Mg Tablet 10 Mg PO QHS Senna (Sennosides) 8.6 Mg Tablet 8.6 Mg PO QHS I have reviewed the current psychotropics carefully including drug interactions. Risk benefit ratio favors no change other than as noted in my dictated progress note. Diagnosis: Problems: (1) Anxiety disorder (2) Impulse control disorder (3) Major depressive disorder, recurrent episode (4) Mild cognitive impairment SYBIL JOE MD Oct 18, 2017 20:53
--- NOTE | 2017-10-18 21:31 | NUR ---
Nursing note: Assumed care of patient in her room. She was sleeping but easily awakened. She was pleasant, calm, cooperative and compliant w/meds and assessment. Pt has chronic pain in back but no real complaints at this time. Pt is withdrawn but tired from today's activities. No SI tonight.
--- NOTE | 2017-10-18 22:40 | PN ---
DATE: 10/17/2017 This late entry 10/17/2017 covers elements not covered in my initial note. SUBJECTIVE: I met with the patient in the evening. The patient slept 6 hours previous night. Overall, she has had several bowel movements, constipation appears better, somewhat withdrawn to her room, nauseated. Medication compliant. Complains of only having had 1 meal supper. During the day, wanting a snack of toast and cheese, and I have been informed the nursing staff about this. REVIEW OF SYSTEMS: No CV, , pulmonary, eye system symptoms on review. MENTAL STATUS EXAM: Oriented reasonably. Speech is coherent, low in volume. Abstraction fair, computation impaired, language function intact, attention span short. Mood and affect somewhat withdrawn. LABORATORY DATA: Reviewed. IMPRESSION: Unchanged from initial note. PLAN: No change from initial note. MAN Renetta JOE MD DR: KELTON/lizz JOB#: [id number] / [id number]
--- NOTE | 2017-10-18 23:16 | PN ---
DATE: 10/16/2017 PSYCHIATRIC PROGRESS NOTE This late entry 10/16/2017 covers elements, not covered in my initial note. SUBJECTIVE: I met with the patient in the evening at length in her room. She remains somewhat withdrawn, anxious. She has had significant problems with constipation. We will defer to Dr. Farrell. REVIEW OF SYSTEMS: Positive for the constipation, tiredness. No CV, , pulmonary, eye system symptoms on review. MENTAL STATUS EXAM: Reasonably oriented. Speech coherent. Has some latency. Abstraction fair, computation reasonable, language function intact. Attention span short. No active suicidal or homicidal ideation. She is quite obsessive, ruminative about why her sons have taken guardianship of her. LABORATORY DATA: Reviewed. IMPRESSION: Major depressive disorder, recurrent; anxiety disorder, unspecified; cognitive disorder, unspecified. PLAN: Given the patient's obsessive ruminative thought processes in addition to her depression, we will change the Wellbutrin 150 mg daily to Zoloft 50 mg a day with breakfast. Increase gradually. Continue rest unchanged per initial note, may augment with Abilify later if needed. MAN Renetta JOE MD DR: KELTON/lizz JOB#: [id number] / [id number]
[2017-10-19] MEDS: LEVOTHYROXINE 75 MCG TABLET PO SCH (05:18)
[2017-10-19] MEDS: LIDOCAINE (700MG/PATCH) PATCH. TD SCH (05:18)
[2017-10-19 06:31] VITALS: BP 121/57
[2017-10-19] MEDS: CHOLECALCIFEROL (VITAMIN D3) 1,000 UNIT TABLET PO SCH (09:08)
[2017-10-19] MEDS: SERTRALINE 50 MG TABLET. PO SCH (09:08)
[2017-10-19 09:18] VITALS: BP 123/69
[2017-10-19] MEDS: FLECAINIDE 50 MG TABLET. PO SCH ×2 (09:19→19:55)
[2017-10-19] MEDS: METOPROLOL TART IMMED RELEASE 50 MG TABLET PO SCH ×2 (09:20→19:54)
--- NOTE | 2017-10-19 12:17 | NUR ---
Behavior Intervention Response and Plan: BIRP Note: Behavior: Assumed Care of patient, patient located in Patient Room at shift change. Patient exhibited the following behavior Calm, Withdrawn, Demanding. Brief assessment on rounds of vital signs, medication needs, lab studies, and pain. Treatment plan problems alteration in mood and fall risk. Intervention: Patient assessed and the following interventions initiated safety checks 15 Minute Checks Head to toe Assessment , Cognitive Assessment , Medications. Response: After interactions and interventions patient responded in the following manner, Compliant , Withdrawn ,Demanding. Continue to assess behaviors and condition will continue to monitor throughout the shift as needed. Patient educated on ADL's, and hand hygiene. Plan: Continue to monitor Master Treatment Plan for patient's progress toward short term goals of Improved Mood, No harm To self/ others, alf goals to return to previous living setting vs placement. Continue to assess patient for changes in above assessment. Monitor for medication needs, pain, and safety concerns. Hourly rounding performed to ensure safe environment.
[2017-10-19 16:17] VITALS: BP 150/78
[2017-10-19] MEDS: amLODIPine BESYLATE 5 MG TABLET PO SCH (17:25)
[2017-10-19] MEDS: TEMAZEPAM 15 MG CAPSULE PO SCH (19:54)
[2017-10-19] MEDS: SENNOSIDES 8.6 MG TABLET PO SCH (19:54)
[2017-10-19] MEDS: RIVAROXABAN 10 MG TABLET. PO SCH (19:55)
[2017-10-19] MEDS: PATCH REMOVAL. MC SCH (19:56)
--- NOTE | 2017-10-19 20:52 | PDOC ---
Exam Note: Tyson Note: Please also refer to the separate dictated note~for this date of service dictated separately.~Patient seen individually. Discussed the patient with Nursing staff reviewed the chart.~Reviewed interim history and current functioning. Reviewed vital signs,~Labs/ Radiology~and current medications noted below. Continue current treatment with the changes noted in the dictated addendum note Assessment: Vital Signs: Vital Signs Date Time Temp Pulse Resp B/P (MAP) Pulse Ox O2 Delivery O2 Flow Rate FiO2 10/19/17 19:55 75 150/78 10/19/17 16:17 97.8 18 98 10/18/17 15:53 Room Air I&O Intake and Output 10/19/17 07:00 Intake Total 380 ml Balance 380 ml Intake Oral 380 ml # Voids 1 # Bowel Movements 1 Current Medications: Meds: Current Medications Olanzapine (ZyPREXA ZYDIS) 2.5 mg PRN Q2HR PRN PO ANXIETY / AGITATION; Start at 04:00 Acetaminophen (Tylenol) 650 mg PRN Q6HRS PRN PO PAIN / TEMP Last administered on 10/16/17at 03:24; Start 10/14/17 at 04:30 Multi-Ingredient Ointment (Analgesic [place]) 1 ashlee PRN QID PRN TP MUSCLE PAIN; Start 10/14/17 at 04:30 Al Hydroxide/Mg Hydroxide (Mylanta Plus Xs) 15 ml PRN AFTMEALHC PRN PO DYSPEPSIA; Start 10/14/17 at 04:30 Magnesium Hydroxide (Milk Of Magnesia) 2,400 mg PRN QHS PRN PO CONSTIPATION Last administered on 10/16/17at 09:40; Start 10/14/17 at 04:30 Bupropion HCl (Wellbutrin Xl) 150 mg DAILY PO Last administered on 10/16/17at 07: 35; Start 10/14/17 at 09:00; Stop 10/16/17 at 23:30; Status DC Diclofenac Sodium (Voltaren) 1 ashlee PRN QID PRN TP PAIN; Start 10/14/17 at 05:45 Levothyroxine Sodium (Synthroid) 75 mcg DAILY07 PO Last administered on at 05:18; Start 10/14/17 at 07:00 Rivaroxaban (Xarelto) 10 mg QHS PO Last administered on 10/19/17 19:55; Start 10/14/17 at 21:00 Amlodipine Besylate (Norvasc) 5 mg QPM PO Last administered on 10/19/17 17:25 ; Start 10/14/17 at 18:00 Vitamin D (Vitamin D3) 500 unit DAILY PO Last administered on 10/19/17 09:08; Start 10/14/17 at 09:00 Temazepam (Restoril) 15 mg QHS PO Last administered on 10/19/17 19:54; Start 10/14/17 at 21:00 Flecainide Acetate (Tambocor) 100 mg BID PO Last administered on 10/19/17 19: 55; Start 10/14/17 at 09:00 Metoprolol Tartrate (Lopressor) 50 mg BID PO Last administered on 10/19/17 19: 54; Start 10/14/17 at 09:00 Sennosides (Senna) 8.6 mg QHS PO Last administered on 10/19/17 19:54; Start at 21:00 Lidocaine (Lidoderm) 1 patch DAILY TD Last administered on 10/19/17 05:18; Start 10/15/17 at 20:00 Miscellaneous (Lidoderm Patch Removal) 1 ea QHS MC Last administered on 19:56; Start 10/16/17 at 21:00 Ondansetron HCl (Zofran Odt) 4 mg PRN Q8HRS PRN PO NAUSEA/VOMITING Last administered on 10/17/17 18:05; Start 10/16/17 at 12:45 Bisacodyl (Dulcolax Supp) 10 mg PRN DAILY PRN [place] CONSTIPATION; Start 10/16/17 at 12:45 Magnesium Citrate (Citroma) 296 ml 1X ONCE PO Last administered on 10/16/17 17 :43; Start 10/16/17 at 17:30; Stop 10/16/17 at 17:31; Status DC Sertraline HCl (Zoloft) 50 mg DAILY PO Last administered on 10/19/17 09:08; Start 10/17/17 at 09:00; Stop 10/19/17 at 17:01; Status DC Tramadol HCl (Ultram) 50 mg PRN Q6HRS PRN PO PAIN; Start 10/17/17 at 12:30 Sertraline HCl (Zoloft) 75 mg DAILY PO ; Start 10/20/17 at 09:00 Active Scripts Active Reported Amlodipine Besylate 5 Mg Tablet 5 Mg PO QPM Bupropion Xl (Bupropion Hcl) 150 Mg Tab.er.24h 150 Mg PO DAILY Vitamin D (Cholecalciferol (Vitamin D3)) 1,000 Unit Capsule 500 Unit PO DAILY Voltaren (Diclofenac Sodium) 100 Gm Gel..gram. 1 Ashlee TP PRN QID PRN Estazolam 2 Mg Tablet 2 Mg PO QHS Flecainide Acetate 100 Mg Tablet 100 Mg PO BID Levothyroxine Sodium 75 Mcg Tablet 75 Mcg PO DAILYAC Metoprolol Tartrate 50 Mg Tablet 50 Mg PO BID Xarelto (Rivaroxaban) 10 Mg Tablet 10 Mg PO QHS Senna (Sennosides) 8.6 Mg Tablet 8.6 Mg PO QHS I have reviewed the current psychotropics carefully including drug interactions. Risk benefit ratio favors no change other than as noted in my dictated progress note. Diagnosis: Problems: (1) Anxiety disorder (2) Impulse control disorder (3) Major depressive disorder, recurrent episode (4) Mild cognitive impairment SYBIL JOE MD Oct 19, 2017 20:52
--- NOTE | 2017-10-19 21:04 | NUR ---
Nursing note: Assumed care of patient in the day room. Pt was watching a movie and interacting w/another resident. She was compliant w/meds and assessment. She is pleasant, no c/o pain but acknowledged she has a pain patch in place. No agitation, no SI.
--- NOTE | 2017-10-19 21:13 | PN ---
DATE: 10/18/2017 This is a late entry, 10/18/2017, covers the elements not covered in my initial note. SUBJECTIVE: I met with the patient in the evening. The patient slept 7-1/4 hours previous night. Per nursing report, she has been calm, compliant, still remains withdrawn, spends much time in her room. Denies suicidal ideation. I met with her in her room at length. She does attend groups. REVIEW OF SYSTEMS: Positive for some nausea. No CV, , pulmonary, eye system symptoms on review. MENTAL STATUS EXAM: Reasonably oriented. Speech has some latency, coherent. Abstraction fair, computation impaired, language function intact, attention span short. Mood and affect still withdrawn, but otherwise less depressed, less anxious. LABORATORY DATA: Reviewed. IMPRESSION: Unchanged from initial note. PLAN: No change from initial note. MAN Renetta JOE MD DR: KELTON/lizz JOB#: [id number] / [id number]
[2017-10-20 05:44] VITALS: BP 151/89
[2017-10-20] MEDS: LEVOTHYROXINE 75 MCG TABLET PO SCH (05:47)
[2017-10-20] MEDS: METOPROLOL TART IMMED RELEASE 50 MG TABLET PO SCH ×2 (09:03→20:23)
[2017-10-20] MEDS: CHOLECALCIFEROL (VITAMIN D3) 1,000 UNIT TABLET PO SCH (09:04)
[2017-10-20] MEDS: SERTRALINE 25 MG TABLET. PO SCH (09:06)
[2017-10-20] MEDS: FLECAINIDE 50 MG TABLET. PO SCH ×2 (09:06→20:24)
[2017-10-20] MEDS: LIDOCAINE (700MG/PATCH) PATCH. TD SCH (09:07)
[2017-10-20 15:29] VITALS: BP 116/78
[2017-10-20] MEDS: amLODIPine BESYLATE 5 MG TABLET PO SCH (18:23)
[2017-10-20] MEDS: PATCH REMOVAL. MC SCH (20:23)
[2017-10-20] MEDS: RIVAROXABAN 10 MG TABLET. PO SCH (20:24)
[2017-10-20] MEDS: TEMAZEPAM 15 MG CAPSULE PO SCH (20:24)
[2017-10-20] MEDS: SENNOSIDES 8.6 MG TABLET PO SCH (20:24)
--- NOTE | 2017-10-20 20:58 | PDOC ---
Exam Note: Tyson Note: Please also refer to the separate dictated note~for this date of service dictated separately.~Patient seen individually. Discussed the patient with Nursing staff reviewed the chart.~Reviewed interim history and current functioning. Reviewed vital signs,~Labs/ Radiology~and current medications noted below. Continue current treatment with the changes noted in the dictated addendum note Assessment: Vital Signs: Vital Signs Date Time Temp Pulse Resp B/P (MAP) Pulse Ox O2 Delivery O2 Flow Rate FiO2 10/20/17 20:24 65 116/78 10/20/17 15:29 97.8 20 99 10/18/17 15:53 Room Air I&O Intake and Output 10/20/17 07:00 Intake Total 480 ml Balance 480 ml Intake Oral 480 ml # Voids 1 Current Medications: Meds: Current Medications Olanzapine (ZyPREXA ZYDIS) 2.5 mg PRN Q2HR PRN PO ANXIETY / AGITATION; Start at 04:00 Acetaminophen (Tylenol) 650 mg PRN Q6HRS PRN PO PAIN / TEMP Last administered on 10/16/17at 03:24; Start 10/14/17 at 04:30 Multi-Ingredient Ointment (Analgesic [place]) 1 ashlee PRN QID PRN TP MUSCLE PAIN; Start 10/14/17 at 04:30 Al Hydroxide/Mg Hydroxide (Mylanta Plus Xs) 15 ml PRN AFTMEALHC PRN PO DYSPEPSIA; Start 10/14/17 at 04:30 Magnesium Hydroxide (Milk Of Magnesia) 2,400 mg PRN QHS PRN PO CONSTIPATION Last administered on 10/16/17at 09:40; Start 10/14/17 at 04:30 Bupropion HCl (Wellbutrin Xl) 150 mg DAILY PO Last administered on 10/16/17at 07: 35; Start 10/14/17 at 09:00; Stop 10/16/17 at 23:30; Status DC Diclofenac Sodium (Voltaren) 1 ashlee PRN QID PRN TP PAIN; Start 10/14/17 at 05:45 Levothyroxine Sodium (Synthroid) 75 mcg DAILY07 PO Last administered on at 05:47; Start 10/14/17 at 07:00 Rivaroxaban (Xarelto) 10 mg QHS PO Last administered on 10/20/17at 20:24; Start 10/14/17 at 21:00 Amlodipine Besylate (Norvasc) 5 mg QPM PO Last administered on 10/20/17 18:23 ; Start 10/14/17 at 18:00 Vitamin D (Vitamin D3) 500 unit DAILY PO Last administered on 10/20/17 09:04; Start 10/14/17 at 09:00 Temazepam (Restoril) 15 mg QHS PO Last administered on 10/20/17 20:24; Start 10/14/17 at 21:00 Flecainide Acetate (Tambocor) 100 mg BID PO Last administered on 10/20/17 20: 24; Start 10/14/17 at 09:00 Metoprolol Tartrate (Lopressor) 50 mg BID PO Last administered on 10/20/17 20: 23; Start 10/14/17 at 09:00 Sennosides (Senna) 8.6 mg QHS PO Last administered on 10/20/17 20:24; Start at 21:00 Lidocaine (Lidoderm) 1 patch DAILY TD Last administered on 10/20/17 09:07; Start 10/15/17 at 20:00 Miscellaneous (Lidoderm Patch Removal) 1 ea QHS MC Last administered on 20:23; Start 10/16/17 at 21:00 Ondansetron HCl (Zofran Odt) 4 mg PRN Q8HRS PRN PO NAUSEA/VOMITING Last administered on 10/17/17 18:05; Start 10/16/17 at 12:45 Bisacodyl (Dulcolax Supp) [address]N [place] CONSTIPATION; Start 10/16/17 at 12:45 Magnesium Citrate (Citroma) 296 ml 1X ONCE PO Last administered on 10/16/17 17 :43; Start 10/16/17 at 17:30; Stop 10/16/17 at 17:31; Status DC Sertraline HCl (Zoloft) 50 mg DAILY PO Last administered on 10/19/17 09:08; Start 10/17/17 at 09:00; Stop 10/19/17 at 17:01; Status DC Tramadol HCl (Ultram) 50 mg PRN Q6HRS PRN PO PAIN; Start 10/17/17 at 12:30 Sertraline HCl (Zoloft) 75 mg DAILY PO Last administered on 10/20/17at 09:06; Start 10/20/17 at 09:00; Stop 10/23/17 at 08:00 Sertraline HCl (Zoloft) 100 mg DAILY PO ; Start 10/23/17 at 09:00 Active Scripts Active Reported Amlodipine Besylate 5 Mg Tablet 5 Mg PO QPM Bupropion Xl (Bupropion Hcl) 150 Mg Tab.er.24h 150 Mg PO DAILY Vitamin D (Cholecalciferol (Vitamin D3)) 1,000 Unit Capsule 500 Unit PO DAILY Voltaren (Diclofenac Sodium) 100 Gm Gel..gram. 1 Ashlee TP PRN QID PRN Estazolam 2 Mg Tablet 2 Mg PO QHS Flecainide Acetate 100 Mg Tablet 100 Mg PO BID Levothyroxine Sodium 75 Mcg Tablet 75 Mcg PO DAILYAC Metoprolol Tartrate 50 Mg Tablet 50 Mg PO BID Xarelto (Rivaroxaban) 10 Mg Tablet 10 Mg PO QHS Senna (Sennosides) 8.6 Mg Tablet 8.6 Mg PO QHS I have reviewed the current psychotropics carefully including drug interactions. Risk benefit ratio favors no change other than as noted in my dictated progress note. Diagnosis: Problems: (1) Anxiety disorder (2) Impulse control disorder (3) Major depressive disorder, recurrent episode (4) Mild cognitive impairment SYBIL JOE MD Oct 20, 2017 20:58
--- NOTE | 2017-10-20 21:54 | PN ---
DATE: 10/19/2017 This late entry 10/19/2017, covers elements not covered in my initial note. SUBJECTIVE: I met with the patient at length in her room, evening of 10/19/2017. She slept 6-3/4 hours previous night, has been somewhat withdrawn, demanding at times, ate 25% breakfast, lunch, nothing for supper. REVIEW OF SYSTEMS: Positive for some tiredness. No CV, , pulmonary, eye, ENT system symptoms on review. She still remains quite depressed, withdrawn, upset at her son's taking guardianship for at times, voicing thoughts of what is the point of living. We addressed at length. She denies active suicidal ideation. No CV, , pulmonary, eye system symptoms on review. Complains of some hip and shoulder pain. Ambulates with walker. MENTAL STATUS EXAM: Reasonably oriented. Speech coherent, abstraction fair, computation impaired, language function intact. Mood and affect somewhat withdrawn, depressed. No active suicidal ideation. Cognitively intact. LABORATORY DATA: Reviewed. IMPRESSION: Unchanged from initial note. PLAN: No change from initial note. She is on Zoloft, which we will increase gradually, maintain Restoril along with Zyprexa p.r.n. SYBIL JOE MD DR: KELTON/lizz JOB#: [id number] / [id number]
[2017-10-21 05:37] VITALS: BP 137/73
[2017-10-21] MEDS: LEVOTHYROXINE 75 MCG TABLET PO SCH (06:09)
[2017-10-21] MEDS: METOPROLOL TART IMMED RELEASE 50 MG TABLET PO SCH ×2 (08:26→19:39)
[2017-10-21] MEDS: FLECAINIDE 50 MG TABLET. PO SCH ×2 (08:27→19:41)
[2017-10-21] MEDS: SERTRALINE 25 MG TABLET. PO SCH (08:29)
[2017-10-21] MEDS: CHOLECALCIFEROL (VITAMIN D3) 1,000 UNIT TABLET PO SCH (08:29)
[2017-10-21] MEDS: LIDOCAINE (700MG/PATCH) PATCH. TD SCH (08:30)
--- NOTE | 2017-10-21 09:23 | NUR ---
WEEKLY ACTIVITY THERAPY NOTE Date of Admission: 10/14/2017 Date of AT Assessment: 10/18/2017 Goal aimed: to increase stimulation Initial goal: Pt. will participate in at least one individual or group activity per day. Weekly progress towards goal: did not achieve Group participation level: varies Behaviors observed: Pt. interest and engagement has improved over the week; Pt. seems to enjoy exercise and social groups; Pt. is friendly with peers and staff Plan: no change to goal
--- NOTE | 2017-10-21 10:17 | NUR ---
Assumed care of pt @ approximately 0700. Pt was sitting up in the Dining Room eating breakfast @ time of our initial encounter. Pt is very pleasant & cooperative. Compliant w/meds & assessment. No signs of hallucinations, delusions, or paranoia noted. Pt c/o "feeling tired" this morning, but denies pain. Her son, Klaus, called for an update on his mother. He gave the passcode, and I provided him with a brief update. I advised him that SW has been trying to reach him and hs brother without success. Holger came into the nurses' station while I was speaking with Klaus, and she went to her office and had me transfer the call to her. Will continue to monitor & assist pt in working towards her treatment & discharge goals.
[2017-10-21 10:22] LABS: BASO % 1 % (0-3); EOS % 1 % (0-3); HEMATOCRIT 33.9 % (36.0-47.0); HEMOGLOBIN 11.3 g/dL (12.0-15.5); LYMPH # 2.9 x10^3/uL (1.0-4.8); LYMPH % 36 % (24-48); MEAN CORPUSCULAR HEMOGLOBIN 28 pg (25-35); MEAN CORPUSCULAR HGB CONC 33 g/dL (31-37); MEAN CORPUSCULAR VOLUME 83 fL (79-100); MONO # 1.1 x10^3/uL (0.0-1.1); MONO % 14 % (0-9); NEUT # 3.9 x10^3uL (1.8-7.7); NEUT % 49 % (31-73); PLATELET COUNT 349 x10^3/uL (140-400); RED BLOOD COUNT 4.09 x10^6/uL (3.50-5.40); RED CELL DISTRIBUTION WIDTH 16.9 % (11.5-14.5)
--- NOTE | 2017-10-21 10:30 | NUR ---
WEEKLY UPDATE: Pt denies SI and is compliant with medications. Pt has recently started working with PT on steady gait techniques with RW. Pt appears to be coming out of her room more and socializing with staff. Pt is not eating well but sleeps up to 7 hours a night. SW will continue to work on getting pt discharge plans made and reach out to pt son(s) again.
[2017-10-21 10:33] LABS: CALCIUM 8.4 mg/dL (8.5-10.1); CREATININE 0.9 mg/dL (0.6-1.0); TOTAL BILIRUBIN 0.4 mg/dL (0.2-1.0)
[2017-10-21 10:39] LABS: POTASSIUM 2.9 mmol/L (3.5-5.1)
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
[2017-10-21] MEDS: POTASSIUM CHLORIDE 20 MEQ TABLET.ER. PO SCH ×2 (11:08→13:00)
[2017-10-21] MEDS: ONDANSETRON ODT 4 MG TAB.RAPDIS PO PRN (11:26)
--- NOTE | 2017-10-21 11:32 | NUR ---
Received call from lab @ approx 1015, advising that the pt's potassium level is critically low @ 2.9. This RN called Dr. Rowan and advised him of this, and he gave telephone order to start the electrolyte protocol, which I did. Shortly after administering Klor-Con tablets, pt c/o nausea, so PRN Zofran administered. Pt also asked about having a private room. She states that having a roommate makes it difficult for her to sleep at night.I advised her that I don't believe that's possible, but I will check for her. No other needs voiced @ this time. Pt currently laying down in bed, resting quietly. I again encouraged her to go to the Day Room to sit and socialize, but she again declined.
[2017-10-21 16:10] VITALS: BP 121/74
[2017-10-21] MEDS: amLODIPine BESYLATE 5 MG TABLET PO SCH (17:14)
[2017-10-21] MEDS: TEMAZEPAM 15 MG CAPSULE PO SCH (19:39)
[2017-10-21] MEDS: RIVAROXABAN 10 MG TABLET. PO SCH (19:39)
[2017-10-21] MEDS: SENNOSIDES 8.6 MG TABLET PO SCH (19:39)
[2017-10-21] MEDS: PATCH REMOVAL. MC SCH (19:41)
--- NOTE | 2017-10-21 20:51 | PDOC ---
Exam Note: Tyson Note: Please also refer to the separate dictated note~for this date of service dictated separately.~Patient seen individually. Discussed the patient with Nursing staff reviewed the chart.~Reviewed interim history and current functioning. Reviewed vital signs,~Labs/ Radiology~and current medications noted below. Continue current treatment with the changes noted in the dictated addendum note Assessment: Vital Signs: Vital Signs Date Time Temp Pulse Resp B/P (MAP) Pulse Ox O2 Delivery O2 Flow Rate FiO2 10/21/17 19:41 60 121/74 10/21/17 16:10 98.1 18 95 10/18/17 15:53 Room Air I&O Intake and Output 10/21/17 07:00 Intake Total 360 ml Balance 360 ml Intake Oral 360 ml # Voids 1 Labs: Laboratory Tests Test 10/21/17 10:09 White Blood Count 8.0 x10^3/uL (4.0-11.0) Red Blood Count 4.09 x10^6/uL (3.50-5.40) Hemoglobin 11.3 g/dL (12.0-15.5) L Hematocrit 33.9 % (36.0-47.0) L Mean Corpuscular Volume 83 fL (79-100) Mean Corpuscular Hemoglobin 28 pg (25-35) Mean Corpuscular Hemoglobin Concent 33 g/dL (31-37) Red Cell Distribution Width 16.9 % (11.5-14.5) H Platelet Count 349 x10^3/uL (140-400) Neutrophils (%) (Auto) 49 % (31-73) Lymphocytes (%) (Auto) 36 % (24-48) Monocytes (%) (Auto) 14 % (0-9) H Eosinophils (%) (Auto) 1 % (0-3) Basophils (%) (Auto) 1 % (0-3) Neutrophils # (Auto) 3.9 x10^3uL (1.8-7.7) Lymphocytes # (Auto) 2.9 x10^3/uL (1.0-4.8) Monocytes # (Auto) 1.1 x10^3/uL (0.0-1.1) Eosinophils # (Auto) 0.0 x10^3/uL (0.0-0.7) Basophils # (Auto) 0.0 x10^3/uL (0.0-0.2) Sodium Level 139 mmol/L (136-145) Potassium Level 2.9 mmol/L (3.5-5.1) *L Chloride Level 100 mmol/L (98-107) Carbon Dioxide Level 36 mmol/L (21-32) H Anion Gap 3 (6-14) L Blood Urea Nitrogen 25 mg/dL (7-20) H Creatinine 0.9 mg/dL (0.6-1.0) Estimated GFR (Cockcroft-Gault) 59.0 BUN/Creatinine Ratio 28 (6-20) H Glucose Level 90 mg/dL (70-99) Calcium Level 8.4 mg/dL (8.5-10.1) L Total Bilirubin 0.4 mg/dL (0.2-1.0) Aspartate Amino Transferase (AST) 28 U/L (15-37) Alanine Aminotransferase (ALT) 37 U/L (14-59) Alkaline Phosphatase 114 U/L (46-116) Total Protein 6.0 g/dL (6.4-8.2) L Albumin 3.0 g/dL (3.4-5.0) L Albumin/Globulin Ratio 1.0 (1.0-1.7) Current Medications: Meds: Current Medications Olanzapine (ZyPREXA ZYDIS) 2.5 mg PRN Q2HR PRN PO ANXIETY / AGITATION; Start at 04:00 Acetaminophen (Tylenol) 650 mg PRN Q6HRS PRN PO PAIN / TEMP Last administered on 10/16/17at 03:24; Start 10/14/17 at 04:30 Multi-Ingredient Ointment (Analgesic [place]) 1 ashlee PRN QID PRN TP MUSCLE PAIN; Start 10/14/17 at 04:30 Al Hydroxide/Mg Hydroxide (Mylanta Plus Xs) 15 ml PRN AFTMEALHC PRN PO DYSPEPSIA; Start 10/14/17 at 04:30 Magnesium Hydroxide (Milk Of Magnesia) 2,400 mg PRN QHS PRN PO CONSTIPATION Last administered on 10/16/17at 09:40; Start 10/14/17 at 04:30 Bupropion HCl (Wellbutrin Xl) 150 mg DAILY PO Last administered on 10/16/17at 07: 35; Start 10/14/17 at 09:00; Stop 10/16/17 at 23:30; Status DC Diclofenac Sodium (Voltaren) 1 ashlee PRN QID PRN TP PAIN; Start 10/14/17 at 05:45 Levothyroxine Sodium (Synthroid) 75 mcg DAILY07 PO Last administered on 06:09; Start 10/14/17 at 07:00 Rivaroxaban (Xarelto) 10 mg QHS PO Last administered on 10/21/17 19:39; Start 10/14/17 at 21:00 Amlodipine Besylate (Norvasc) 5 mg QPM PO Last administered on 10/21/17 17:14 ; Start 10/14/17 at 18:00 Vitamin D (Vitamin D3) 500 unit DAILY PO Last administered on 10/21/17 08:29; Start 10/14/17 at 09:00 Temazepam (Restoril) 15 mg QHS PO Last administered on 10/21/17 19:39; Start 10/14/17 at 21:00 Flecainide Acetate (Tambocor) 100 mg BID PO Last administered on 10/21/17 19: 41; Start 10/14/17 at 09:00 Metoprolol Tartrate (Lopressor) 50 mg BID PO Last administered on 10/21/17 19: 39; Start 10/14/17 at 09:00 Sennosides (Senna) 8.6 mg QHS PO Last administered on 10/21/17 19:39; Start at 21:00 Lidocaine (Lidoderm) 1 patch DAILY TD Last administered on 10/21/17 08:30; Start 10/15/17 at 20:00 Miscellaneous (Lidoderm Patch Removal) 1 ea QHS MC Last administered on 19:41; Start 10/16/17 at 21:00 Ondansetron HCl (Zofran Odt) 4 mg PRN Q8HRS PRN PO NAUSEA/VOMITING Last administered on 10/21/17 11:26; Start 10/16/17 at 12:45 Bisacodyl (Dulcolax Supp) 10 mg PRN DAILY PRN [place] CONSTIPATION; Start 10/16/17 at 12:45 Magnesium Citrate (Citroma) 296 ml 1X ONCE PO Last administered on 9/8/18at 17 :43; Start 10/16/17 at 17:30; Stop 10/16/17 at 17:31; Status DC Sertraline HCl (Zoloft) 50 mg DAILY PO Last administered on 10/19/17at 09:08; Start 10/17/17 at 09:00; Stop 10/19/17 at 17:01; Status DC Tramadol HCl (Ultram) 50 mg PRN Q6HRS PRN PO PAIN; Start 10/17/17 at 12:30 Sertraline HCl (Zoloft) 75 mg DAILY PO Last administered on 10/21/17at 08:29; Start 10/20/17 at 09:00; Stop 10/23/17 at 08:00 Sertraline HCl (Zoloft) 100 mg DAILY PO ; Start 10/23/17 at 09:00 Potassium Chloride (Klor-Con) 40 meq Q2H PO Last administered on 10/21/17at 13: 00; Start 10/21/17 at 11:00; Stop 10/21/17 at 13:01; Status DC Active Scripts Active Reported Amlodipine Besylate 5 Mg Tablet 5 Mg PO QPM Bupropion Xl (Bupropion Hcl) 150 Mg Tab.er.24h 150 Mg PO DAILY Vitamin D (Cholecalciferol (Vitamin D3)) 1,000 Unit Capsule 500 Unit PO DAILY Voltaren (Diclofenac Sodium) 100 Gm Gel..gram. 1 Ashlee TP PRN QID PRN Estazolam 2 Mg Tablet 2 Mg PO QHS Flecainide Acetate 100 Mg Tablet 100 Mg PO BID Levothyroxine Sodium 75 Mcg Tablet 75 Mcg PO DAILYAC Metoprolol Tartrate 50 Mg Tablet 50 Mg PO BID Xarelto (Rivaroxaban) 10 Mg Tablet 10 Mg PO QHS Senna (Sennosides) 8.6 Mg Tablet 8.6 Mg PO QHS I have reviewed the current psychotropics carefully including drug interactions. Risk benefit ratio favors no change other than as noted in my dictated progress note. Diagnosis: Problems: (1) Anxiety disorder (2) Impulse control disorder (3) Major depressive disorder, recurrent episode (4) Mild cognitive impairment SYBIL JOE MD Oct 21, 2017 20:51
--- NOTE | 2017-10-21 20:56 | NUR ---
Behavior Intervention Response and Plan: BIRP Note: Behavior: Assumed Care of patient, patient located in Day Room at shift change. Patient exhibited the following behavior Interactive, Social, Calm. Brief assessment on rounds of vital signs, medication needs, lab studies, and pain. Treatment plan problems . Intervention: Patient assessed and the following interventions initiated safety checks 15 Minute Checks Personal Alarm in place , Cognitive Assessment , Head to toe Assessment. Response: After interactions and interventions patient responded in the following manner, Social , Calm ,Interactive. Continue to assess behaviors and condition will continue to monitor throughout the shift as needed. Patient educated on ADL's, and hand hygiene. Plan: Continue to monitor Master Treatment Plan for patient's progress toward short term goals of Improved Mood, No harm To self/ others, manager intermediate goals to return to previous living setting vs placement. Continue to assess patient for changes in above assessment. Monitor for medication needs, pain, and safety concerns. Hourly rounding performed to ensure safe environment.
--- NOTE | 2017-10-21 22:07 | PN ---
DATE: 10/20/2017 PSYCHIATRIC PROGRESS NOTE This is a late entry, 10/20/2017, covers elements not covered in my initial note on evening of 10/20/2017. SUBJECTIVE: I met with her in her room. The patient slept 3-1/4 hours previous night. She has been pleasant, was cooperative with PT, OT, smiling at times, still somewhat depressed, anxious, obsessive about her son's taking guardianship and I processed this at great length with her. REVIEW OF SYSTEMS: Impaired ambulation with walker. No CV, , pulmonary, eye system symptoms on review. MENTAL STATUS EXAM: Reasonably oriented. Speech is coherent, abstraction fair, computation impaired, language function intact, attention span short. She is somewhat anxious, obsessive, paranoid, but less so than before. No suicidal or homicidal ideation. LABORATORY DATA: Reviewed. IMPRESSION: Unchanged from initial note. PLAN: Increase Zoloft to 100 mg a day. Continue Restoril 15 at bedtime along with Zyprexa p.r.n. SYBIL JOE MD DR: KELTON/lizz JOB#: [id number] / [id number]
[2017-10-22 05:59] VITALS: BP 113/60
[2017-10-22] MEDS: LEVOTHYROXINE 75 MCG TABLET PO SCH (06:04)
[2017-10-22] MEDS: SERTRALINE 25 MG TABLET. PO SCH (08:26)
[2017-10-22] MEDS: CHOLECALCIFEROL (VITAMIN D3) 1,000 UNIT TABLET PO SCH (08:26)
[2017-10-22] MEDS: METOPROLOL TART IMMED RELEASE 50 MG TABLET PO SCH ×2 (08:26→19:30)
[2017-10-22] MEDS: FLECAINIDE 50 MG TABLET. PO SCH ×2 (08:27→19:30)
[2017-10-22] MEDS: LIDOCAINE (700MG/PATCH) PATCH. TD SCH (08:28)
[2017-10-22 09:45] LABS: BASO % 0 % (0-3); EOS # 0.1 x10^3/uL (0.0-0.7); EOS % 1 % (0-3); HEMATOCRIT 32.6 % (36.0-47.0); HEMOGLOBIN 10.6 g/dL (12.0-15.5); LYMPH # 2.6 x10^3/uL (1.0-4.8); LYMPH % 34 % (24-48); MEAN CORPUSCULAR HEMOGLOBIN 27 pg (25-35); MEAN CORPUSCULAR HGB CONC 33 g/dL (31-37); MEAN CORPUSCULAR VOLUME 84 fL (79-100); MONO # 0.8 x10^3/uL (0.0-1.1); MONO % 11 % (0-9); NEUT # 4.2 x10^3uL (1.8-7.7); NEUT % 54 % (31-73); PLATELET COUNT 317 x10^3/uL (140-400); RED BLOOD COUNT 3.88 x10^6/uL (3.50-5.40); WHITE BLOOD COUNT 7.8 x10^3/uL (4.0-11.0)
[2017-10-22 10:01] LABS: ALBUMIN 2.8 g/dL (3.4-5.0); ALBUMIN/GLOBULIN RATIO 0.9 (1.0-1.7); GFR 52.2; POTASSIUM 3.5 mmol/L (3.5-5.1); TOTAL BILIRUBIN 0.3 mg/dL (0.2-1.0); TOTAL PROTEIN 5.8 g/dL (6.4-8.2)
[2017-10-22] MEDS: MAGNESIUM HYDROXIDE 2,400 MG/30 ML ORAL.SUSP. PO PRN (10:44)
--- NOTE | 2017-10-22 11:38 | NUR ---
SW received a call from pt son, Robert who wanted to check in on pt and to discuss concerns. Pt wants to make sure that pt received more care at the time of discharge. SW and pt discussed continuing PT and getting counseling set up for once she returns. Pt son agrees that she needs counseling as well. According to pt son, she has made some passive SI and feels that counseling is long overdue. Pt son gave more information in regards to pt ex-boyfriend. Pt son reports that pt chooses to practice Buddaism. SW will continue to work towards pt discharge plans and keep both pt sons up to date.
--- NOTE | 2017-10-22 13:37 | NUR ---
Behavior Intervention Response and Plan: BIRP Note: Behavior: Assumed Care of patient, patient located in Dining Room at shift change. Patient exhibited the following behavior Withdrawn, Compliant, Compliant. Brief assessment on rounds of vital signs, medication needs, lab studies, and pain. Treatment plan problems DTS and FAll Risk. Intervention: Patient assessed and the following interventions initiated safety checks 15 Minute Checks Head to toe Assessment , Cognitive Assessment , Medications. Response: After interactions and interventions patient responded in the following manner, Withdrawn , Calm ,Cooperative. Continue to assess behaviors and condition will continue to monitor throughout the shift as needed. Patient educated on ADL's, and hand hygiene. 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 Continue to assess patient for changes in above assessment. Monitor for medication needs, pain, and safety concerns. Hourly rounding performed to ensure safe environment.
[2017-10-22 15:23] VITALS: BP 94/59
[2017-10-22] MEDS: ACETAMINOPHEN 325 MG TABLET PO PRN (16:11)
--- NOTE | 2017-10-22 16:34 | NUR ---
Nursing Note: Pt C/O stomach pain, pt was given MOM and prune juice earlier with no results yet. Tylenol 650 mg and lemon/[place] drink given. Will continue to monitor.
[2017-10-22] MEDS: amLODIPine BESYLATE 5 MG TABLET PO SCH (17:53)
[2017-10-22] MEDS: SENNOSIDES 8.6 MG TABLET PO SCH (19:22)
[2017-10-22] MEDS: RIVAROXABAN 10 MG TABLET. PO SCH (19:23)
[2017-10-22] MEDS: TEMAZEPAM 15 MG CAPSULE PO SCH (19:23)
[2017-10-22 19:34] VITALS: BP 114/62
[2017-10-22] MEDS: PATCH REMOVAL. MC SCH (19:42)
--- NOTE | 2017-10-22 20:44 | PDOC ---
Exam Note: Tyson Note: Please also refer to the separate dictated note~for this date of service dictated separately.~Patient seen individually. Discussed the patient with Nursing staff reviewed the chart.~Reviewed interim history and current functioning. Reviewed vital signs,~Labs/ Radiology~and current medications noted below. Continue current treatment with the changes noted in the dictated addendum note Assessment: Vital Signs: Vital Signs Date Time Temp Pulse Resp B/P (MAP) Pulse Ox O2 Delivery O2 Flow Rate FiO2 10/22/17 19:34 81 18 114/62 (79) 95 Room Air 10/22/17 15:23 98.0 I&O Intake and Output 10/22/17 07:00 Intake Total 460 ml Balance 460 ml Intake Oral 460 ml # Voids 1 Labs: Laboratory Tests Test 10/22/17 09:37 White Blood Count 7.8 x10^3/uL (4.0-11.0) Red Blood Count 3.88 x10^6/uL (3.50-5.40) Hemoglobin 10.6 g/dL (12.0-15.5) L Hematocrit 32.6 % (36.0-47.0) L Mean Corpuscular Volume 84 fL (79-100) Mean Corpuscular Hemoglobin 27 pg (25-35) Mean Corpuscular Hemoglobin Concent 33 g/dL (31-37) Red Cell Distribution Width 17.0 % (11.5-14.5) H Platelet Count 317 x10^3/uL (140-400) Neutrophils (%) (Auto) 54 % (31-73) Lymphocytes (%) (Auto) 34 % (24-48) Monocytes (%) (Auto) 11 % (0-9) H Eosinophils (%) (Auto) 1 % (0-3) Basophils (%) (Auto) 0 % (0-3) Neutrophils # (Auto) 4.2 x10^3uL (1.8-7.7) Lymphocytes # (Auto) 2.6 x10^3/uL (1.0-4.8) Monocytes # (Auto) 0.8 x10^3/uL (0.0-1.1) Eosinophils # (Auto) 0.1 x10^3/uL (0.0-0.7) Basophils # (Auto) 0.0 x10^3/uL (0.0-0.2) Sodium Level 140 mmol/L (136-145) Potassium Level 3.5 mmol/L (3.5-5.1) Chloride Level 102 mmol/L (98-107) Carbon Dioxide Level 32 mmol/L (21-32) Anion Gap 6 (6-14) Blood Urea Nitrogen 31 mg/dL (7-20) H Creatinine 1.0 mg/dL (0.6-1.0) Estimated GFR (Cockcroft-Gault) 52.2 BUN/Creatinine Ratio 31 (6-20) H Glucose Level 131 mg/dL (70-99) H Calcium Level 8.0 mg/dL (8.5-10.1) L Total Bilirubin 0.3 mg/dL (0.2-1.0) Aspartate Amino Transferase (AST) 29 U/L (15-37) Alanine Aminotransferase (ALT) 39 U/L (14-59) Alkaline Phosphatase 102 U/L (46-116) Total Protein 5.8 g/dL (6.4-8.2) L Albumin 2.8 g/dL (3.4-5.0) L Albumin/Globulin Ratio 0.9 (1.0-1.7) L Current Medications: Meds: Current Medications Olanzapine (ZyPREXA ZYDIS) 2.5 mg PRN Q2HR PRN PO ANXIETY / AGITATION; Start at 04:00 Acetaminophen (Tylenol) 650 mg PRN Q6HRS PRN PO PAIN / TEMP Last administered on 10/22/17at 16:11; Start 10/14/17 at 04:30 Multi-Ingredient Ointment (Analgesic [place]) 1 ashlee PRN QID PRN TP MUSCLE PAIN; Start 10/14/17 at 04:30 Al Hydroxide/Mg Hydroxide (Mylanta Plus Xs) 15 ml PRN AFTMEALHC PRN PO DYSPEPSIA; Start 10/14/17 at 04:30 Magnesium Hydroxide (Milk Of Magnesia) 2,400 mg PRN QHS PRN PO CONSTIPATION Last administered on 10/22/17at 10:44; Start 10/14/17 at 04:30 Bupropion HCl (Wellbutrin Xl) 150 mg DAILY PO Last administered on 10/16/17at 07: 35; Start 10/14/17 at 09:00; Stop 10/16/17 at 23:30; Status DC Diclofenac Sodium (Voltaren) 1 ashlee PRN QID PRN TP PAIN; Start 10/14/17 at 05:45 Levothyroxine Sodium (Synthroid) 75 mcg DAILY07 PO Last administered on 06:04; Start 10/14/17 at 07:00 Rivaroxaban (Xarelto) 10 mg QHS PO Last administered on 10/22/17 19:23; Start 10/14/17 at 21:00 Amlodipine Besylate (Norvasc) 5 mg QPM PO Last administered on 10/21/17 17:14 ; Start 10/14/17 at 18:00 Vitamin D (Vitamin D3) 500 unit DAILY PO Last administered on 10/22/17 08:26; Start 10/14/17 at 09:00 Temazepam (Restoril) 15 mg QHS PO Last administered on 10/22/17 19:23; Start 10/14/17 at 21:00 Flecainide Acetate (Tambocor) 100 mg BID PO Last administered on 10/22/17 19: 30; Start 10/14/17 at 09:00 Metoprolol Tartrate (Lopressor) 50 mg BID PO Last administered on 10/22/17 19: 30; Start 10/14/17 at 09:00 Sennosides (Senna) 8.6 mg QHS PO Last administered on 10/22/17 19:22; Start at 21:00 Lidocaine (Lidoderm) 1 patch DAILY TD Last administered on 10/22/17 08:28; Start 10/15/17 at 20:00 Miscellaneous (Lidoderm Patch Removal) 1 ea QHS MC Last administered on 19:42; Start 10/16/17 at 21:00 Ondansetron HCl (Zofran Odt) 4 mg PRN Q8HRS PRN PO NAUSEA/VOMITING Last administered on 10/21/17 11:26; Start 10/16/17 at 12:45 Bisacodyl (Dulcolax Supp) 10 mg PRN DAILY PRN [place] CONSTIPATION; Start 10/16/17 at 12:45 Magnesium Citrate (Citroma) 296 ml 1X ONCE PO Last administered on 10/16/17 17 :43; Start 10/16/17 at 17:30; Stop 10/16/17 at 17:31; Status DC Sertraline HCl (Zoloft) 50 mg DAILY PO Last administered on 10/19/17at 09:08; Start 10/17/17 at 09:00; Stop 10/19/17 at 17:01; Status DC Tramadol HCl (Ultram) 50 mg PRN Q6HRS PRN PO PAIN; Start 10/17/17 at 12:30 Sertraline HCl (Zoloft) 75 mg DAILY PO Last administered on 10/22/17at 08:26; Start 10/20/17 at 09:00; Stop 10/23/17 at 08:00 Sertraline HCl (Zoloft) 100 mg DAILY PO ; Start 10/23/17 at 09:00 Potassium Chloride (Klor-Con) 40 meq Q2H PO Last administered on 10/21/17at 13: 00; Start 10/21/17 at 11:00; Stop 10/21/17 at 13:01; Status DC Active Scripts Active Reported Amlodipine Besylate 5 Mg Tablet 5 Mg PO QPM Bupropion Xl (Bupropion Hcl) 150 Mg Tab.er.24h 150 Mg PO DAILY Vitamin D (Cholecalciferol (Vitamin D3)) 1,000 Unit Capsule 500 Unit PO DAILY Voltaren (Diclofenac Sodium) 100 Gm Gel..gram. 1 Ashlee TP PRN QID PRN Estazolam 2 Mg Tablet 2 Mg PO QHS Flecainide Acetate 100 Mg Tablet 100 Mg PO BID Levothyroxine Sodium 75 Mcg Tablet 75 Mcg PO DAILYAC Metoprolol Tartrate 50 Mg Tablet 50 Mg PO BID Xarelto (Rivaroxaban) 10 Mg Tablet 10 Mg PO QHS Senna (Sennosides) 8.6 Mg Tablet 8.6 Mg PO QHS I have reviewed the current psychotropics carefully including drug interactions. Risk benefit ratio favors no change other than as noted in my dictated progress note. Diagnosis: Problems: (1) Anxiety disorder (2) Impulse control disorder (3) Major depressive disorder, recurrent episode (4) Mild cognitive impairment SYBIL JOE MD Oct 22, 2017 20:44
--- NOTE | 2017-10-23 00:09 | NUR ---
Nursing Note Patient located in patient room for shift assessment and medication pass. Patient is alert and oriented to self, year and location. Patient takes all medications whole and is very appropriate with cares and assessments. Patient is complaining of some abdominal discomfort and has not had a documented bowel movement since 10/19/17. Patient refuses PRN medication for constipation at this time but states that she will take something in the morning. Patient bowel sounds are active and abdomen in non tender or distended. Patient remains in patient room sleeping at this time.
[2017-10-23] MEDS: MAGNESIUM HYDROXIDE 2,400 MG/30 ML ORAL.SUSP. PO PRN (01:09)
--- NOTE | 2017-10-23 02:03 | NUR ---
Nursing Note Patient continues to complain of abdominal discomfort and difficulty having a bowel movement. Patient given PRN Milk of Magnesia per PRN order at 0109. Patient also given PRN Voltaren Gel for back pain @ 0128.
--- NOTE | 2017-10-23 02:33 | PN ---
DATE: 10/21/2017 PSYCHIATRIC PROGRESS NOTE This late entry 10/21/2017 covers elements not covered in my initial note. SUBJECTIVE: I met with the patient in the evening. The patient staffed at a treatment team meeting with the entire team in the morning. Overall, the patient remains withdrawn, spends much time in her room. REVIEW OF SYSTEMS: No CV, , pulmonary, eye system symptoms on review. Complains of feeling cold. MENTAL STATUS EXAM: Reasonably oriented. Speech coherent, has some latency. Abstraction fair, computation reasonable, language function intact. She talked at length about her disappointment in her son taking guardianship. No suicidal or homicidal ideation. LABORATORY DATA: Reviewed. IMPRESSION: Unchanged from initial note. PLAN: No change from initial note. MAN Renetta JOE MD DR: KELTON/lizz JOB#: [id number] / [id number]
[2017-10-23 05:59] VITALS: BP 101/54
[2017-10-23] MEDS: LEVOTHYROXINE 75 MCG TABLET PO SCH (06:22)
[2017-10-23] MEDS: METOPROLOL TART IMMED RELEASE 50 MG TABLET PO SCH ×2 (07:56→19:56)
[2017-10-23] MEDS: FLECAINIDE 50 MG TABLET. PO SCH ×2 (07:57→19:57)
[2017-10-23] MEDS: CHOLECALCIFEROL (VITAMIN D3) 1,000 UNIT TABLET PO SCH (07:58)
[2017-10-23] MEDS: LIDOCAINE (700MG/PATCH) PATCH. TD SCH (08:01)
[2017-10-23] MEDS ORDERED: SERTRALINE 100 MG TABLET. PO SCH (09:00)
--- NOTE | 2017-10-23 10:56 | NUR ---
Assumed care of pt @ approximately 0700. Pt was sitting up in the Dining Room eating breakfast @ time of our initial encounter. Pt is very pleasant & cooperative. Compliant w/meds & assessment. No signs of hallucinations, delusions, or paranoia noted. Pt c/o abdominal pain & cramping this a.m., which she believes is due to constipation. Per her request, I provided her with a Dulcolax suppository, which she self-administered. A very short time later, she had a XL bowel movement. Pt declined to take a shower this a.m., but stated that she would prefer to take one tonight. Pt currently resting quietly in bed - no needs voiced @ this time. Will continue to monitor & assist pt in working towards her treatment & discharge goals.
[2017-10-23 15:40] VITALS: BP 113/73
[2017-10-23] MEDS: amLODIPine BESYLATE 5 MG TABLET PO SCH (17:18)
[2017-10-23] MEDS: SENNOSIDES 8.6 MG TABLET PO SCH (19:56)
[2017-10-23] MEDS: TEMAZEPAM 15 MG CAPSULE PO SCH (19:56)
[2017-10-23 19:57] VITALS: BP 113/73
[2017-10-23] MEDS: PATCH REMOVAL. MC SCH (19:57)
[2017-10-23] MEDS: RIVAROXABAN 10 MG TABLET. PO SCH (19:57)
[2017-10-23] MEDS ORDERED: MIRTAZAPINE 7.5 MG TABLET. PO SCH (21:00)
--- NOTE | 2017-10-23 22:46 | PDOC ---
Exam Note: Tyson Note: Please also refer to the separate dictated note~for this date of service dictated separately.~Patient seen individually. Discussed the patient with Nursing staff reviewed the chart.~Reviewed interim history and current functioning. Reviewed vital signs,~Labs/ Radiology~and current medications noted below. Continue current treatment with the changes noted in the dictated addendum note Assessment: Vital Signs: Vital Signs Date Time Temp Pulse Resp B/P (MAP) Pulse Ox O2 Delivery O2 Flow Rate FiO2 10/23/17 19:57 60 113/73 10/23/17 15:40 97.9 18 96 10/22/17 19:34 Room Air I&O Intake and Output 10/23/17 07:00 Intake Total 720 ml Balance 720 ml Intake Oral 720 ml Current Medications: Meds: Current Medications Olanzapine (ZyPREXA ZYDIS) 2.5 mg PRN Q2HR PRN PO ANXIETY / AGITATION; Start at 04:00 Acetaminophen (Tylenol) 650 mg PRN Q6HRS PRN PO PAIN / TEMP Last administered on 10/22/17at 16:11; Start 10/14/17 at 04:30 Multi-Ingredient Ointment (Analgesic [place]) 1 ashlee PRN QID PRN TP MUSCLE PAIN; Start 10/14/17 at 04:30 Al Hydroxide/Mg Hydroxide (Mylanta Plus Xs) 15 ml PRN AFTMEALHC PRN PO DYSPEPSIA; Start 10/14/17 at 04:30 Magnesium Hydroxide (Milk Of Magnesia) 2,400 mg PRN QHS PRN PO CONSTIPATION Last administered on 10/23/17at 01:09; Start 10/14/17 at 04:30 Bupropion HCl (Wellbutrin Xl) 150 mg DAILY PO Last administered on 10/16/17at 07: 35; Start 10/14/17 at 09:00; Stop 10/16/17 at 23:30; Status DC Diclofenac Sodium (Voltaren) 1 ashlee PRN QID PRN TP PAIN Last administered on at 01:28; Start 10/14/17 at 05:45 Levothyroxine Sodium (Synthroid) 75 mcg DAILY07 PO Last administered on at 06:22; Start 10/14/17 at 07:00 Rivaroxaban (Xarelto) 10 mg QHS PO Last administered on 10/23/17 19:57; Start 10/14/17 at 21:00 Amlodipine Besylate (Norvasc) 5 mg QPM PO Last administered on 10/23/17 17:18 ; Start 10/14/17 at 18:00 Vitamin D (Vitamin D3) 500 unit DAILY PO Last administered on 10/23/17 07:58; Start 10/14/17 at 09:00 Temazepam (Restoril) 15 mg QHS PO Last administered on 10/23/17 19:56; Start 10/14/17 at 21:00 Flecainide Acetate (Tambocor) 100 mg BID PO Last administered on 10/23/17 19: 57; Start 10/14/17 at 09:00 Metoprolol Tartrate (Lopressor) 50 mg BID PO Last administered on 10/23/17 19: 56; Start 10/14/17 at 09:00 Sennosides (Senna) 8.6 mg QHS PO Last administered on 10/23/17 19:56; Start at 21:00 Lidocaine (Lidoderm) 1 patch DAILY TD Last administered on 10/23/17 08:01; Start 10/15/17 at 20:00 Miscellaneous (Lidoderm Patch Removal) 1 ea QHS MC Last administered on 19:57; Start 10/16/17 at 21:00 Ondansetron HCl (Zofran Odt) 4 mg PRN Q8HRS PRN PO NAUSEA/VOMITING Last administered on 10/21/17 11:26; Start 10/16/17 at 12:45 Bisacodyl (Dulcolax Supp) 10 mg PRN DAILY PRN [place] CONSTIPATION Last administered on 10/23/17 09:27; Start 10/16/17 at 12:45 Magnesium Citrate (Citroma) 296 ml 1X ONCE PO Last administered on 10/16/17 17 :43; Start 10/16/17 at 17:30; Stop 10/16/17 at 17:31; Status DC Sertraline HCl (Zoloft) 50 mg DAILY PO Last administered on 10/19/17 09:08; Start 10/17/17 at 09:00; Stop 10/19/17 at 17:01; Status DC Tramadol HCl (Ultram) 50 mg PRN Q6HRS PRN PO PAIN; Start 10/17/17 at 12:30 Sertraline HCl (Zoloft) 75 mg DAILY PO Last administered on 10/22/17at 08:26; Start 10/20/17 at 09:00; Stop 10/23/17 at 08:00; Status DC Sertraline HCl (Zoloft) 100 mg DAILY PO Last administered on 10/23/17at 08:02; Start 10/23/17 at 09:00 Potassium Chloride (Klor-Con) 40 meq Q2H PO Last administered on 10/21/17at 13: 00; Start 10/21/17 at 11:00; Stop 10/21/17 at 13:01; Status DC Mirtazapine (Remeron) 7.5 mg QHS PO Last administered on 10/23/17at 19:56; Start 10/23/17 at 21:00 Active Scripts Active Reported Amlodipine Besylate 5 Mg Tablet 5 Mg PO QPM Bupropion Xl (Bupropion Hcl) 150 Mg Tab.er.24h 150 Mg PO DAILY Vitamin D (Cholecalciferol (Vitamin D3)) 1,000 Unit Capsule 500 Unit PO DAILY Voltaren (Diclofenac Sodium) 100 Gm Gel..gram. 1 Ashlee TP PRN QID PRN Estazolam 2 Mg Tablet 2 Mg PO QHS Flecainide Acetate 100 Mg Tablet 100 Mg PO BID Levothyroxine Sodium 75 Mcg Tablet 75 Mcg PO DAILYAC Metoprolol Tartrate 50 Mg Tablet 50 Mg PO BID Xarelto (Rivaroxaban) 10 Mg Tablet 10 Mg PO QHS Senna (Sennosides) 8.6 Mg Tablet 8.6 Mg PO QHS I have reviewed the current psychotropics carefully including drug interactions. Risk benefit ratio favors no change other than as noted in my dictated progress note. Diagnosis: Problems: (1) Anxiety disorder (2) Impulse control disorder (3) Major depressive disorder, recurrent episode (4) Mild cognitive impairment SYBIL JOE MD Oct 23, 2017 22:46
--- NOTE | 2017-10-23 22:51 | RAD ---
Left rib series 10/23/2017 INDICATION: Fall tonight in bathroom with left rib pain. COMPARISON: Acute abdominal series October 16, 2017 TECHNIQUE: 4 supine views of the left ribs were obtained. FINDINGS: A left chest wall cardiac device is identified with leads projecting over the right atrium and right ventricle. There are 11 paired ribs with hypoplastic 12th ribs. Left anterior seventh and eighth rib fractures are noted. There is no pneumothorax. IMPRESSION: Mildly displaced anterior left seventh and eighth rib fractures are identified. Electronically signed by: Misa Ordonez MD (10/23/2017 10:47 PM) [facility]
--- NOTE | 2017-10-23 22:56 | RAD ---
Pelvis and bilateral hip radiograph 10/23/2017 10:03 PM INDICATION: Fall with pain in left hip. History of bilateral hip replacements. COMPARISON: None available. TECHNIQUE: AP view the pelvis, single view of the left hip and 3 views the right hip are provided. 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 There is osteopenia which limits fine osseous detail evaluation. Along the femoral stem of the left total hip arthroplasty there is lucency involving the subtrochanteric region suspicious for a fracture. Superior and inferior pubic rami appear intact. Remote right inferior pubic ramus fracture is identified with osseous bridging. Sacroiliac joints appear well aligned. Right total hip arthroplasty appears intact. Right femoral hardware is intact. IMPRESSION: Suggestion of a nondisplaced fracture involving the subtrochanteric left proximal femur. No dislocation is identified involving the hardware. Electronically signed by: Misa Ordonez MD (10/23/2017 10:53 PM) [facility]
--- NOTE | 2017-10-23 22:58 | NUR ---
Behavior Intervention Response and Plan: BIRP Note: Behavior: Assumed Care of patient, patient located in Patient Room at shift change. Patient exhibited the following behavior Calm, Resistive, Cooperative. Brief assessment on rounds of vital signs, medication needs, lab studies, and pain. Treatment plan problems . Intervention: Patient assessed and the following interventions initiated safety checks 15 Minute Checks Personal Alarm in place , Cognitive Assessment , Head to toe Assessment. Response: After interactions and interventions patient responded in the following manner, Calm , Compliant ,Cooperative. Continue to assess behaviors and condition will continue to monitor throughout the shift as needed. Patient educated on ADL's, and hand hygiene. Plan: Continue to monitor Master Treatment Plan for patient's progress toward short term goals of Improved Mood, No harm To self/ others, rn long term care goals to return to previous living setting vs placement. Continue to assess patient for changes in above assessment. Monitor for medication needs, pain, and safety concerns. Hourly rounding performed to ensure safe environment.
--- NOTE | 2017-10-23 23:35 | NUR ---
At 1940 patient found on floor in bathroom by RN Em sitting on her bottom. I came in her room shortly after, when asked what happened patient stated she was attempting to get the door to the bathroom open. She denied any pain initially and stated she would like to get off the floor and back into bed which she was assisted using her walker and by myself and Em. Contacted nursing supervisor inspection department Lindsey, Dr Rowan, as well as left a voicemail on her son's machine who is her DPOA. Dr Rowan ordered bilateral xray of the pelvis and hips, as well as L series of ribs. The results of the xray: Mildly displaced anterior Left 7th and 8th rib fx's and non-displaced fx involving the subtrochanteric Left proximal femur. Contacted Dr Rowan with the results and he stated send patient to [facility] for orthopedic care. Contacted supervisor inspection department Lindsey advised of Dr Rowan orders and the request that she call him to further discuss plan. Will continue to monitor patient.
[2017-10-23] MEDS ORDERED: ACET325T9 PO (23:50)
[2017-10-23] MEDS ORDERED: BISA10SU2 RC (23:50)
[2017-10-23] MEDS ORDERED: MAG355OR17 PO (23:52)
[2017-10-23] MEDS ORDERED: LIDO700A39 TD (23:52)
[2017-10-23] MEDS ORDERED: MAGN2400 PO (23:53)
[2017-10-23] MEDS ORDERED: MIRT15TA3 PO (23:54)
[2017-10-23] MEDS ORDERED: METH29OI TP (23:54)
[2017-10-23] MEDS ORDERED: OLAN2.5T3 PO (23:55)
[2017-10-23] MEDS ORDERED: ONDA4TAB12 PO (23:56)
[2017-10-23] MEDS ORDERED: SERT100T8 PO (23:56)
[2017-10-23] MEDS ORDERED: TRAM50TA PO (23:57)
[2017-10-23] MEDS ORDERED: TEMA15CA PO (23:57)
[2017-10-24] MEDS ORDERED: Patch Removal TD (00:02)
--- NOTE | 2017-10-24 00:53 | NUR ---
At 0030 patient was given 50mg of tramadol for pain, patient left by ems on stretcher to be transferred to [facility] [address] room 438 RN assigned is Lindsey. Patient left in stable condition with all belongings including her eye glasses which were found in her bed underneath her. Called son who is her POA left a voicemail asking him to give us a call back.
--- NOTE | 2017-10-24 00:56 | NUR ---
Transition Record was faxed to follow-up provider with the following elements: Reason for admission, procedures, tests, principal diagnosis, pending studies, patient instructions, 31/08 contact information for unit, phone number to obtain pending test results, plan for follow-up care, physician follow-up, advanced directive information, and medication list with dose, duration and instructions. This information was included in the following documents: History and physical, lab results, study results, progress notes, social work planning form, DC instruction form, patient visit summary, and medication reconciliation form. Date & time record faxed: 10/23 [id number] Record faxed to:[facility] Record discussed with/ report given to:Lindsey NOVOA
--- NOTE | 2017-10-24 06:40 | NUR ---
At 0630 called patient DELISA left a voicemail to call the unit. (3rd message left on machine)
--- NOTE | 2017-10-24 19:31 | PDOC ---
Exam Note: Tyosn Note: Please also refer to the separate dictated note~for this date of service dictated separately.~Patient seen individually. Discussed the patient with Nursing staff reviewed the chart.~Reviewed interim history and current functioning. Reviewed vital signs,~Labs/ Radiology~and current medications noted below. Continue current treatment with the changes noted in the dictated addendum note Assessment: Vital Signs: Vital Signs Date Time Temp Pulse Resp B/P (MAP) Pulse Ox O2 Delivery O2 Flow Rate FiO2 10/24/17 00:30 96 10/23/17 19:57 60 113/73 10/23/17 15:40 97.9 18 10/22/17 19:34 Room Air I&O Intake and Output 10/24/17 07:00 Intake Total 840 ml Balance 840 ml Intake Oral 840 ml # Bowel Movements 2 Current Medications: Meds: Current Medications Olanzapine (ZyPREXA ZYDIS) 2.5 mg PRN Q2HR PRN PO ANXIETY / AGITATION; Start at 04:00; Stop 10/24/17 at 00:59; Status DC Acetaminophen (Tylenol) 650 mg PRN Q6HRS PRN PO PAIN / TEMP Last administered on 10/22/17at 16:11; Start 10/14/17 at 04:30; Stop 10/24/17 at 00:59; Status DC Multi-Ingredient Ointment (Analgesic Brinklow) 1 ashlee PRN QID PRN TP MUSCLE PAIN; Start 10/14/17 at 04:30; Stop 10/24/17 at 00:59; Status DC Al Hydroxide/Mg Hydroxide (Mylanta Plus Xs) 15 ml PRN AFTMEALHC PRN PO DYSPEPSIA; Start 10/14/17 at 04:30; Stop 10/24/17 at 00:59; Status DC Magnesium Hydroxide (Milk Of Magnesia) 2,400 mg PRN QHS PRN PO CONSTIPATION Last administered on 10/23/17at 01:09; Start 10/14/17 at 04:30; Stop 10/24/17 at 00:59; Status DC Bupropion HCl (Wellbutrin Xl) 150 mg DAILY PO Last administered on 10/16/17at 07: 35; Start 10/14/17 at 09:00; Stop 10/16/17 at 23:30; Status DC Diclofenac Sodium (Voltaren) 1 ashlee PRN QID PRN TP PAIN Last administered on 01:28; Start 10/14/17 at 05:45; Stop 10/24/17 at 00:59; Status DC Levothyroxine Sodium (Synthroid) 75 mcg DAILY07 PO Last administered on 06:22; Start 10/14/17 at 07:00; Stop 10/24/17 at 00:59; Status DC Rivaroxaban (Xarelto) 10 mg QHS PO Last administered on 10/23/17 19:57; Start 10/14/17 at 21:00; Stop 10/24/17 at 00:59; Status DC Amlodipine Besylate (Norvasc) 5 mg QPM PO Last administered on 10/23/17 17:18 ; Start 10/14/17 at 18:00; Stop 10/24/17 at 00:59; Status DC Vitamin D (Vitamin D3) 500 unit DAILY PO Last administered on 10/23/17at 07:58; Start 10/14/17 at 09:00; Stop 10/24/17 at 00:59; Status DC Temazepam (Restoril) 15 mg QHS PO Last administered on 10/23/17 19:56; Start 10/14/17 at 21:00; Stop 10/24/17 at 00:59; Status DC Flecainide Acetate (Tambocor) 100 mg BID PO Last administered on 10/23/17 19: 57; Start 10/14/17 at 09:00; Stop 10/24/17 at 00:59; Status DC Metoprolol Tartrate (Lopressor) 50 mg BID PO Last administered on 10/23/17at 19: 56; Start 10/14/17 at 09:00; Stop 10/24/17 at 00:59; Status DC Sennosides (Senna) 8.6 mg QHS PO Last administered on 10/23/17 19:56; Start at 21:00; Stop 10/24/17 at 00:59; Status DC Lidocaine (Lidoderm) 1 patch DAILY TD Last administered on 10/23/17at 08:01; Start 10/15/17 at 20:00; Stop 10/24/17 at 00:59; Status DC Miscellaneous (Lidoderm Patch Removal) 1 ea QHS MC Last administered on at 19:57; Start 10/16/17 at 21:00; Stop 10/24/17 at 00:59; Status DC Ondansetron HCl (Zofran Odt) 4 mg PRN Q8HRS PRN PO NAUSEA/VOMITING Last administered on 10/21/17at 11:26; Start 10/16/17 at 12:45; Stop 10/24/17 at 00:59 ; Status DC Bisacodyl (Dulcolax Supp) 10 mg PRN DAILY PRN SC CONSTIPATION Last administered on 10/23/17at 09:27; Start 10/16/17 at 12:45; Stop 10/24/17 at 00:59 ; Status DC Magnesium Citrate (Citroma) 296 ml 1X ONCE PO Last administered on 10/16/17at 17 :43; Start 10/16/17 at 17:30; Stop 10/16/17 at 17:31; Status DC Sertraline HCl (Zoloft) 50 mg DAILY PO Last administered on 10/19/17at 09:08; Start 10/17/17 at 09:00; Stop 10/19/17 at 17:01; Status DC Tramadol HCl (Ultram) 50 mg PRN Q6HRS PRN PO PAIN Last administered on at 00:30; Start 10/17/17 at 12:30; Stop 10/24/17 at 00:59; Status DC Sertraline HCl (Zoloft) 75 mg DAILY PO Last administered on 10/22/17at 08:26; Start 10/20/17 at 09:00; Stop 10/23/17 at 08:00; Status DC Sertraline HCl (Zoloft) 100 mg DAILY PO Last administered on 10/23/17at 08:02; Start 10/23/17 at 09:00; Stop 10/24/17 at 00:59; Status DC Potassium Chloride (Klor-Con) 40 meq Q2H PO Last administered on 10/21/17at 13: 00; Start 10/21/17 at 11:00; Stop 10/21/17 at 13:01; Status DC Mirtazapine (Remeron) 7.5 mg QHS PO Last administered on 10/23/17at 19:56; Start 10/23/17 at 21:00; Stop 10/24/17 at 00:59; Status DC Active Scripts Active Reported [Patch Removal] 1 Patch TD HS Tramadol Hcl (Tramadol HCl) 50 Mg Tablet 50 Mg PO PRN Q6HRS PRN Temazepam 15 Mg Capsule 15 Mg PO HS Sertraline Hcl 100 Mg Tablet 100 Mg PO DAILY Ondansetron Odt (Ondansetron) 4 Mg Tab.rapdis 4 Mg PO PRN Q8HRS PRN Zyprexa (Olanzapine) 2.5 Mg Tablet 2.5 Mg PO PRN Q2HR PRN Mirtazapine 15 Mg Tablet 7.5 Mg PO HS Analgesic Brinklow (Methyl Salicylate/Menthol) 28 Gm Oint...g. 1 Ashlee TP PRN QID PRN Milk Of Magnesia (Magnesium Hydroxide) 2,400 Mg/10 Ml Oral.susp 2,400 Mg PO PRN QHS PRN Advanced Antacid Liquid (Mag Hydrox/Al Hydrox/Simeth) 355 Ml Oral.susp 15 Ml PO PRN AFTMEALHC PRN Lidocaine 1 Each Adh..patch 1 Patch TD DAILY Bisacodyl 10 Mg Supp.rect 10 Mg RC PRN DAILY PRN Tylenol (Acetaminophen) 325 Mg Tablet 650 Mg PO PRN Q6HRS PRN Amlodipine Besylate 5 Mg Tablet 5 Mg PO QPM Vitamin D (Cholecalciferol (Vitamin D3)) 1,000 Unit Capsule 500 Unit PO DAILY Voltaren (Diclofenac Sodium) 100 Gm Gel..gram. 1 Ashlee TP PRN QID PRN Flecainide Acetate 100 Mg Tablet 100 Mg PO BID Levothyroxine Sodium 75 Mcg Tablet 75 Mcg PO DAILYAC Metoprolol Tartrate 50 Mg Tablet 50 Mg PO BID Xarelto (Rivaroxaban) 10 Mg Tablet 10 Mg PO QHS Senna (Sennosides) 8.6 Mg Tablet 8.6 Mg PO QHS I have reviewed the current psychotropics carefully including drug interactions. Risk benefit ratio favors no change other than as noted in my dictated progress note. Diagnosis: Problems: (1) Mild cognitive impairment (2) Major depressive disorder, recurrent episode (3) Impulse control disorder (4) Anxiety disorder SYBIL JOE MD Oct 24, 2017 19:31
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
--- NOTE | 2017-10-25 13:09 | PN ---
DATE: 10/24/2017 NO DICTATION MAN Renetta JOE MD DR: Norah JOB#: [id number] / [id number]
--- NOTE | 2017-10-25 23:58 | PN ---
DATE: 10/22/2017 This is a late entry for 10/22/2017 covers elements not covered in my initial note. SUBJECTIVE: I met with the patient in the evening. The patient slept 8-1/4 hours previous evening. She has been withdrawn, spends much time in her room, has GI symptoms of constipation, has received milk of mag, prune juice. She is anxious, obsessed about her son taking guardianship and I processed this with her and she was able to express the son's displeasure at her dating a younger man. REVIEW OF SYSTEMS: Ambulation impaired, in wheelchair. No CV, , pulmonary, eye system symptoms on review. MENTAL STATUS EXAM: Reasonably oriented. Speech is coherent, abstraction fair, computation impaired, language function intact. Mood and affect is less depressed, anxious. LABORATORY DATA: Reviewed. IMPRESSION: Unchanged from initial note. PLAN: No change from initial note, gradually increase the Zoloft to 100 mg a day. MAN Renetta JOE MD DR: KELTON/lizz JOB#: [id number] / [id number]
--- NOTE | 2017-10-26 00:01 | PN ---
DATE: 10/23/2017 This is a late entry for 10/23/2017 covers elements not covered in my initial note. SUBJECTIVE: I met with the patient in the evening of 10/23/2017. Overall, the patient is still constipated, received a suppository yesterday, had some cramps overnight, but no BM as yet. She has been sleeping somewhat poorly. REVIEW OF SYSTEMS: Ambulation impaired. No CV, , pulmonary, eye system symptoms on review. Does have some constipation. MENTAL STATUS EXAM: Reasonably oriented. Speech is coherent, abstraction fair, computation impaired, language function intact, attention span short. Mood and affect remain somewhat withdrawn, but improved. LABORATORY DATA: Reviewed. IMPRESSION: Unchanged from initial note. PLAN: Add Remeron 7.5 mg at bedtime. Maintain Restoril, Zoloft along with Zyprexa p.r.n. MAN Renetta JOE MD DR: KELTON/lizz JOB#: [id number] / [id number]
== END 2017-10-24 00:50 | disposition short-term general hospital (02) | DRG 885 ==
LOC: GEROPSY 10-14 04:00
PROVIDERS: ADMIT Psychiatry & Neurology Psychiatry; ATTEND Psychiatry & Neurology Psychiatry
DX: F33.3 Major depressive disorder, recurrent, severe with psychotic symptoms (principal); M80.052A Age-related osteoporosis with current pathological fracture, left femur, initial encounter for fracture; E03.9 Hypothyroidism, unspecified; F01.50 Vascular dementia, unspecified severity, without behavioral disturbance, psychotic disturbance, mood disturbance, and anxiety; F02.80 Dementia in other diseases classified elsewhere, unspecified severity, without behavioral disturbance, psychotic disturbance, mood disturbance, and anxiety; F09 Unspecified mental disorder due to known physiological condition; F41.9 Anxiety disorder, unspecified; F63.9 Impulse disorder, unspecified; G30.9 Alzheimer's disease, unspecified; I10 Essential (primary) hypertension; I48.91 Unspecified atrial fibrillation; I49.5 Sick sinus syndrome; K59.00 Constipation, unspecified; Z66 Do not resuscitate; Z96.643 Presence of artificial hip joint, bilateral; Z85.038 Personal history of other malignant neoplasm of large intestine; Z85.820 Personal history of malignant melanoma of skin; Z91.040 Latex allergy status; Z95.0 Presence of cardiac pacemaker; Z88.5 Allergy status to narcotic agent; Z88.8 Allergy status to other drugs, medicaments and biological substances; Z79.899 Other long term (current) drug therapy; Z91.018 Allergy to other foods; Y93.89 Activity, other specified; Y99.8 Other external cause status
CPT/HCPCS: 36415; 71100; 73521; 74022; 80053; 80061; 81001; 82306; 82607; 83036; 83540; 83550; 83735; 84436; 84443; 84480; 85025; 86592; Q0162; 97110; 97116; 97530; 97535